=== PATIENT | male | born 1990 | race Caucasian/White ===

== ENCOUNTER 2023-07-30 18:27 | Emergency (ER) | payer OTHER, SELFPAY ==
--- NOTE | 2023-07-30 18:29 | ECG_ITS ---
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
[2023-07-30 18:32] VITALS: BP 150/100; PULSE 100; RESP 18; TEMP 36.8; O2SAT 98; BMI 30.3
[2023-07-30 18:47] VITALS: PULSE 88
--- NOTE | 2023-07-30 18:57 | ED_ITS ---
Documented by User: JOSY Don 07/30/23 19:58 HPI - General Adult General Chief complaint: Psychiatric Symptoms Stated complaint: SI Time Seen by Provider: 07/30/23 18:29 Source: patient Mode of arrival: ambulance Limitations: no limitations History of Present Illness HPI narrative: patient is a 33-year-old male who presents to the emergency department by EMS for possible suicidal ideation. Patient states he has been depressed and called his sister to say goodbye, he did not make any specific suicidal statements and his sister interpreted this as a suicidal gesture. Patient denies any feelings of wanting to harm himself or anyone else. He states he had a suicide attempt over ten years ago, he received counseling and therapy at that time. He continues to feel depressed and medicated with marijuana. He states he drank fire ball at 3 AM this morning but has not had any additional alcohol. He is calm, cooperative the time of initial interview. Related Data Home Medications Medication Instructions Recorded Confirmed esomeprazole magnesium 40 mg 40 mg PO DAILY 07/30/23 07/30/23 capsule,delayed release (Nexium) Allergies Allergy/AdvReac Type Severity Reaction Status Date / Time No Known Drug Allergies Allergy Verified 07/30/23 19:19 Review of Systems ROS Constitutional Denies: fever or chills Ears, nose, mouth, and throat Denies: throat pain Cardiovascular Denies: chest pain Respiratory Denies: shortness of breath Gastrointestinal Denies: nausea or vomiting Integumentary/Breast Denies: rash Neurological Denies: headache PFSH PFSH Social History Smoking status: Current every day smoker Exam Narrative Exam Narrative: Gen.: Awake, alert, in no distress Head: Normocephalic, atraumatic ENT: Moist mucous membranes Respiratory: No respiratory distress, lungs clear bilaterally Cardio: Regular rate and rhythm Extremities: Moves extremities equally, no injuries noted Psych: Normal mood and affect Neuro: No focal neuro deficit Skin: Warm, dry, intact Constitutional Vital Signs, click to edit/add: Last Vital Signs Temp 98.2 F 07/30/23 18:32 Pulse 100 H 07/30/23 18:32 Resp 18 07/30/23 18:32 BP 150/100 H 07/30/23 18:32 Pulse Ox 98 07/30/23 18:32 O2 Del Method Room Air 07/30/23 18:32 Course Vital Signs Vital signs: Vital Signs Temperature 98.2 F 07/30/23 18:32 Pulse Rate 100 H 07/30/23 18:32 Respiratory Rate 18 07/30/23 18:32 Blood Pressure 150/100 H 07/30/23 18:32 Pulse Oximetry 98 07/30/23 18:32 Oxygen Delivery Method Room Air 07/30/23 18:32 Temperature 98.2 F 07/30/23 18:32 Pulse Rate 100 H 07/30/23 18:32 Respiratory Rate 18 07/30/23 18:32 Blood Pressure 150/100 H 07/30/23 18:32 Pulse Oximetry 98 07/30/23 18:32 Oxygen Delivery Method Room Air 07/30/23 18:32 Medical Decision Making MDM Narrative Medical decision making narrative: patient was calm and cooperative in the Emergency Room, his lab studies show he is mildly intoxicated with an ethanol of 163. He is medically cleared for psychiatric evaluation as he is awake, alert and lucid with no slurred speech or altered mental status. Counseling services at [facility] counseling discussed his hesitation over the phone, he was evaluated over the phone by a counselor but does not feel he is at risk for suicidal or homicidal action and he is cleared to be discharged home. His mother will pick him up from the hospital. Return to the Emergency Room if symptoms change or worsen Medical Records Medical records reviewed: Yes I reviewed the patient's medical records Lab Data Lab results reviewed: Yes I reviewed the patient's lab results Labs: Lab Results 07/30/23 07/30/23 Range/Units 18:40 18:54 WBC 6.2 (4.0-11.0) 10^3/uL RBC 4.83 (4.70-6.10) 10^6/uL Hgb 15.0 (14.0-18.0) g/dL Hct 43.9 (42.0-54.0) % MCV 90.9 (80.0-94.0) fL MCH 31.1 (25.9-34.0) pg MCHC 34.2 (29.9-35.2) g/dL RDW 13.6 (11.0-15.0) % Plt Count 317 (150-450) 10^3/uL MPV 8.8 L (9.5-13.5) fL Neut % (Auto) 60.6 (43.0-75.0) % Lymph % (Auto) 26.5 (20.5-60.0) % [place] % (Auto) 10.2 (1.7-12.0) % Eos % (Auto) 1.8 (0.9-7.0) % Baso % (Auto) 0.6 (0.2-2.0) % Neut # (Auto) 3.8 (1.4-6.5) 10^3/uL Lymph # (Auto) 1.6 (1.2-3.8) 10^3/uL [place] # (Auto) 0.6 (0.3-0.8) 10^3/uL Eos # (Auto) 0.1 (0.0-0.7) 10^3/uL Baso # (Auto) 0.0 (0.0-0.1) 10^3/uL Abs Immat Gran (auto) 0.02 (0.00-0.03) 10^3/uL Imm/Tot Granulo (auto) 0.3 (0.0-0.5) % Sodium 139 (136-145) mmol/L Potassium 3.7 (3.5-5.1) mmol/L Chloride 106 (98-107) mmol/L Carbon Dioxide 27.7 (21.0-32.0) mmol/L Anion Gap 9.0 BUN 11.0 (7.0-18.0) mg/dL Creatinine 0.92 (0.70-1.30) mg/dL Est GFR ( Amer) >60 (>=60) Est GFR (Non-Af Amer) >60 (>=60) BUN/Creatinine Ratio 12.0 Glucose 74 (74-106) mg/dL Calcium 8.1 L (8.5-10.1) mg/dL Total Bilirubin 0.2 (0.2-1.0) mg/dL AST 23 (15-37) U/L ALT 46 (16-63) U/L Alkaline Phosphatase 112 (46-116) U/L Total Protein 7.5 (6.4-8.2) g/dL Albumin 4.2 (3.4-5.0) g/dL Globulin 3.3 g/dL Albumin/Globulin Ratio 1.3 Urine Color Yellow (YELLOW) Urine Clarity Clear (CLEAR) Urine pH 5.5 (5.0-9.0) Ur Specific [place] >=1.030 A (1.005-1.025) Urine Protein Trace (NEG/TRACE) mg/dL Urine Glucose (UA) Negative (NEGATIVE) mg/dL Urine Ketones Negative (NEGATIVE) mg/dL Urine Occult Blood Moderate A (NEGATIVE) Urine Nitrite Negative (NEGATIVE) Urine Bilirubin Negative (NEGATIVE) Urine Urobilinogen 0.2 (0.2-1.0) EU/dL Ur Leukocyte Esterase Negative (NEGATIVE) Urine RBC 0-2 (0-2) #/HPF Urine WBC 0-2 A (NONE SEEN) #/HPF Ur Squamous Epith Cells Rare (NONE/RARE) #/LPF Urine Crystals None seen (None Seen) #/HPF Urine Bacteria Large A (NONE SEEN) #/HPF Urine Casts None seen (NONE SEEN) #/LPF Urine Mucus None seen (NONE SEEN) Ur Culture Indicated? Yes Salicylates <2.8 (<=19.9) mg/dL Urine Opiates Screen Negative (NEGATIVE) Ur Buprenorphine Scrn Negative (NEGATIVE) Ur Oxycodone Screen Negative (NEGATIVE) Urine Methadone Screen Negative (NEGATIVE) Ur Propoxyphene Screen Negative (NEGATIVE) Acetaminophen <2.0 L (10.0-30.0) ug/mL Ur Barbiturates Screen Negative (NEGATIVE) U Tricyclic Antidepress Negative (NEGATIVE) Ur Phencyclidine Scrn Negative (NEGATIVE) Ur Amphetamines Screen Negative (NEGATIVE) U Methamphetamines Scrn Negative (NEGATIVE) U Benzodiazepines Scrn Negative (NEGATIVE) Urine Cocaine Screen Negative (NEGATIVE) U Cannabinoids Screen Positive A (NEGATIVE) Ethanol Quant 163 mg/dL Discharge Plan Discharge Chief Complaint: Psychiatric Symptoms Clinical Impression: Depression Patient Disposition: Home, Self-Care Time of Disposition Decision: 19:54 Condition: Good Prescriptions / Home Meds: No Action esomeprazole magnesium [Nexium] 40 mg capsule,delayed release(DR/EC) 40 mg PO DAILY Instructions: Depression (ED) Stand Alone Forms: Portal Instructions Referrals: Physician,Non-Staff, MD [Primary Care Provider] - 1 week Discharge Date/Time: 07/30/23 20:00 Documented by User: Tracee Mark MD 07/30/23 20:13 HPI - General Adult General Chief complaint: Psychiatric Symptoms Stated complaint: SI Time Seen by Provider: 07/30/23 18:29 Related Data Home Medications Medication Instructions Recorded Confirmed esomeprazole magnesium 40 mg 40 mg PO DAILY 07/30/23 07/30/23 capsule,delayed release (Nexium) Allergies Allergy/AdvReac Type Severity Reaction Status Date / Time No Known Drug Allergies Allergy Verified 07/30/23 19:19 PFSH PFSH Social History Smoking status: Current every day smoker Exam Constitutional Vital Signs, click to edit/add: Last Vital Signs Temp 98.2 F 07/30/23 18:32 Pulse 100 H 07/30/23 18:32 Resp 18 07/30/23 18:32 BP 150/100 H 07/30/23 18:32 Pulse Ox 98 07/30/23 18:32 O2 Del Method Room Air 07/30/23 18:32 Course Vital Signs Vital signs: Vital Signs Temperature 98.2 F 07/30/23 18:32 Pulse Rate 100 H 07/30/23 18:32 Respiratory Rate 18 07/30/23 18:32 Blood Pressure 150/100 H 07/30/23 18:32 Pulse Oximetry 98 07/30/23 18:32 Oxygen Delivery Method Room Air 07/30/23 18:32 Temperature 98.2 F 07/30/23 18:32 Pulse Rate 100 H 07/30/23 18:32 Respiratory Rate 18 07/30/23 18:32 Blood Pressure 150/100 H 07/30/23 18:32 Pulse Oximetry 98 07/30/23 18:32 Oxygen Delivery Method Room Air 07/30/23 18:32 Medical Decision Making MDM Narrative Medical decision making narrative: patient was calm and cooperative in the Emergency Room, his lab studies show he is mildly intoxicated with an ethanol of 163. He is medically cleared for psychiatric evaluation as he is awake, alert and lucid with no slurred speech or altered mental status. Counseling services at [facility] counseling discussed his hesitation over the phone, he was evaluated over the phone by a counselor but does not feel he is at risk for suicidal or homicidal action and he is cleared to be discharged home. His mother will pick him up from the hospital. Return to the Emergency Room if symptoms change or worsen Attending physician attestation I have seen and evaluated this patient. I have reviewed the mid-level provider?s documentation medical decision making and treatment plan. I agree with the mid- level provider?s assessment, and plan. Lab Data Labs: Lab Results 07/30/23 07/30/23 Range/Units 18:40 18:54 WBC 6.2 (4.0-11.0) 10^3/uL RBC 4.83 (4.70-6.10) 10^6/uL Hgb 15.0 (14.0-18.0) g/dL Hct 43.9 (42.0-54.0) % MCV 90.9 (80.0-94.0) fL MCH 31.1 (25.9-34.0) pg MCHC 34.2 (29.9-35.2) g/dL RDW 13.6 (11.0-15.0) % Plt Count 317 (150-450) 10^3/uL MPV 8.8 L (9.5-13.5) fL Neut % (Auto) 60.6 (43.0-75.0) % Lymph % (Auto) 26.5 (20.5-60.0) % [place] % (Auto) 10.2 (1.7-12.0) % Eos % (Auto) 1.8 (0.9-7.0) % Baso % (Auto) 0.6 (0.2-2.0) % Neut # (Auto) 3.8 (1.4-6.5) 10^3/uL Lymph # (Auto) 1.6 (1.2-3.8) 10^3/uL [place] # (Auto) 0.6 (0.3-0.8) 10^3/uL Eos # (Auto) 0.1 (0.0-0.7) 10^3/uL Baso # (Auto) 0.0 (0.0-0.1) 10^3/uL Abs Immat Gran (auto) 0.02 (0.00-0.03) 10^3/uL Imm/Tot Granulo (auto) 0.3 (0.0-0.5) % Sodium 139 (136-145) mmol/L Potassium 3.7 (3.5-5.1) mmol/L Chloride 106 (98-107) mmol/L Carbon Dioxide 27.7 (21.0-32.0) mmol/L Anion Gap 9.0 BUN 11.0 (7.0-18.0) mg/dL Creatinine 0.92 (0.70-1.30) mg/dL Est GFR ( Amer) >60 (>=60) Est GFR (Non-Af Amer) >60 (>=60) BUN/Creatinine Ratio 12.0 Glucose 74 (74-106) mg/dL Calcium 8.1 L (8.5-10.1) mg/dL Total Bilirubin 0.2 (0.2-1.0) mg/dL AST 23 (15-37) U/L ALT 46 (16-63) U/L Alkaline Phosphatase 112 (46-116) U/L Total Protein 7.5 (6.4-8.2) g/dL Albumin 4.2 (3.4-5.0) g/dL Globulin 3.3 g/dL Albumin/Globulin Ratio 1.3 Urine Color Yellow (YELLOW) Urine Clarity Clear (CLEAR) Urine pH 5.5 (5.0-9.0) Ur Specific [place] >=1.030 A (1.005-1.025) Urine Protein Trace (NEG/TRACE) mg/dL Urine Glucose (UA) Negative (NEGATIVE) mg/dL Urine Ketones Negative (NEGATIVE) mg/dL Urine Occult Blood Moderate A (NEGATIVE) Urine Nitrite Negative (NEGATIVE) Urine Bilirubin Negative (NEGATIVE) Urine Urobilinogen 0.2 (0.2-1.0) EU/dL Ur Leukocyte Esterase Negative (NEGATIVE) Urine RBC 0-2 (0-2) #/HPF Urine WBC 0-2 A (NONE SEEN) #/HPF Ur Squamous Epith Cells Rare (NONE/RARE) #/LPF Urine Crystals None seen (None Seen) #/HPF Urine Bacteria Large A (NONE SEEN) #/HPF Urine Casts None seen (NONE SEEN) #/LPF Urine Mucus None seen (NONE SEEN) Ur Culture Indicated? Yes Salicylates <2.8 (<=19.9) mg/dL Urine Opiates Screen Negative (NEGATIVE) Ur Buprenorphine Scrn Negative (NEGATIVE) Ur Oxycodone Screen Negative (NEGATIVE) Urine Methadone Screen Negative (NEGATIVE) Ur Propoxyphene Screen Negative (NEGATIVE) Acetaminophen <2.0 L (10.0-30.0) ug/mL Ur Barbiturates Screen Negative (NEGATIVE) U Tricyclic Antidepress Negative (NEGATIVE) Ur Phencyclidine Scrn Negative (NEGATIVE) Ur Amphetamines Screen Negative (NEGATIVE) U Methamphetamines Scrn Negative (NEGATIVE) U Benzodiazepines Scrn Negative (NEGATIVE) Urine Cocaine Screen Negative (NEGATIVE) U Cannabinoids Screen Positive A (NEGATIVE) Ethanol Quant 163 mg/dL Discharge Plan Discharge Chief Complaint: Psychiatric Symptoms Clinical Impression: Depression Patient Disposition: Home, Self-Care Time of Disposition Decision: 19:54 Condition: Good Prescriptions / Home Meds: No Action esomeprazole magnesium [Nexium] 40 mg capsule,delayed release(DR/EC) 40 mg PO DAILY Instructions: Depression (ED) Stand Alone Forms: Portal Instructions Referrals: Physician,Non-Staff, MD [Primary Care Provider] - 1 week Discharge Date/Time: 07/30/23 20:00
[2023-07-30 19:02] LABS: Bilirubin Urine NEGATIVE (NEGATIVE); Blood Urine MODERATE (NEGATIVE); Clarity Urine CLEAR (CLEAR); Color Urine YELLOW (YELLOW); Glucose Urine UA NEGATIVE (NEGATIVE); Ketones Urine NEGATIVE (NEGATIVE); Leukocyte Esterase Urine NEGATIVE (NEGATIVE); Nitrite Urine NEGATIVE (NEGATIVE); Protein Urine TRACE mg/dL (NEG/TRACE); Specific Gravity Urine >=1.030 (1.005-1.025); Urobilinogen Urine 0.2 EU/dL (0.2-1.0); pH Urine 5.5 (5.0-9.0)
[2023-07-30 19:03] LABS: Basophils Percent Auto 0.6 % (0.2-2.0); Eosinophils Absolute Auto 0.1 10^3/uL (0.0-0.7); Eosinophils Percent Auto 1.8 % (0.9-7.0); Hematocrit 43.9 % (42.0-54.0); Immature Granulocytes Abs Auto 0.02 10^3/uL (0.00-0.03); Immature Granulocytes Pct Auto 0.3 % (0.0-0.5); Lymphocytes Absolute Auto 1.6 10^3/uL (1.2-3.8); Lymphocytes Percent Auto 26.5 % (20.5-60.0); Mean Corpuscular HGB Conc 34.2 g/dL (29.9-35.2); Mean Corpuscular Hemoglobin 31.1 pg (25.9-34.0); Mean Corpuscular Volume 90.9 fL (80.0-94.0); Mean Platelet Volume 8.8 fL (9.5-13.5); Monocytes Absolute Auto 0.6 10^3/uL (0.3-0.8); Monocytes Percent Auto 10.2 % (1.7-12.0); Neutrophils Absolute Auto 3.8 10^3/uL (1.4-6.5); Neutrophils Percent Auto 60.6 % (43.0-75.0); Platelet Count 317 10^3/uL (150-450); Red Blood Count 4.83 10^6/uL (4.70-6.10); Red Cell Distribution Width 13.6 % (11.0-15.0); White Blood Count 6.2 10^3/uL (4.0-11.0)
[2023-07-30 19:03] LABS: Urine Microscopic Indicated YES
[2023-07-30 19:10] LABS: Bacteria Urine LARGE #/HPF (NONE SEEN); Cast Seen? NONE SEEN #/LPF (NONE SEEN); Crystals Seen? None Seen #/HPF (None Seen); Mucus Urine NONE SEEN (NONE SEEN); RBC Urine 0-2 #/HPF (0-2); Squamous Epithelial Cell Urine RARE #/LPF (NONE/RARE); Urine Culture Indicated YES; WBC Urine 0-2 #/HPF (NONE SEEN)
[2023-07-30 19:12] LABS: Amphetamine Screen Urine NEGATIVE (NEGATIVE); Barbiturates Screen Urine NEGATIVE (NEGATIVE); Benzodiazepines Screen Urine NEGATIVE (NEGATIVE); Buprenorphine Screen Urine NEGATIVE (NEGATIVE); Cannabinoid Screen Urine POSITIVE (NEGATIVE); Cocaine Screen Urine NEGATIVE (NEGATIVE); Methadone Screen Urine NEGATIVE (NEGATIVE); Methamphetamines Screen Urine NEGATIVE (NEGATIVE); Opiate Screen Urine NEGATIVE (NEGATIVE); Oxycodone Screen Urine NEGATIVE (NEGATIVE); Phencyclidine Screen Urine NEGATIVE (NEGATIVE); Tricyclic Antidepressant Urine NEGATIVE (NEGATIVE)
[2023-07-30 19:21] LABS: Alanine Aminotransferase 46 U/L (16-63); Albumin Globulin Ratio 1.3; Albumin Level 4.2 g/dL (3.4-5.0); Alkaline Phosphatase 112 U/L (46-116); Aspartate Amino Transferase 23 U/L (15-37); Bilirubin Total 0.2 mg/dL (0.2-1.0); Calcium 8.1 mg/dL (8.5-10.1); Carbon Dioxide 27.7 mmol/L (21.0-32.0); Chloride 106 mmol/L (98-107); Estimated GFR (African America >60 (>=60); Estimated GFR (Non-African Ame >60 (>=60); Globulin 3.3 g/dL; Glucose 74 mg/dL (74-106); Potassium 3.7 mmol/L (3.5-5.1); Sodium 139 mmol/L (136-145); Total Protein 7.5 g/dL (6.4-8.2)
[2023-07-30] MEDS: ACETAMINOPHEN 325 MG TABLET 650 MG PO (19:27)
[2023-07-30] MEDS: ONDANSETRON PF 4 MG/2 ML VIAL IV (19:28)
[2023-07-30 19:37] LABS: Ethanol 163 mg/dL; Salicylate <2.8 mg/dL (<=19.9)
[2023-07-30 19:38] LABS: Acetaminophen <2.0 ug/mL (10.0-30.0)
== END 2023-07-30 20:00 | disposition home or self-care (01) ==
PROVIDERS: Physician Assistant; Emergency Provider Emergency Medicine
DX: F32.A Depression, unspecified (principal); R45.851 Suicidal ideations; Z79.899 Other long term (current) drug therapy; F17.210 Nicotine dependence, cigarettes, uncomplicated; F10.129 Alcohol abuse with intoxication, unspecified; Y90.6 Blood alcohol level of 120-199 mg/100 ml
CPT/HCPCS: 36415; 80053; 80179; 80307; 80320; 80329; 81001; 85025; 87086; 93005; 99284

== ENCOUNTER 2024-04-22 03:38 | Emergency (ER) | payer SELFPAY ==
[2024-04-22 03:43] VITALS: BP 154/108; PULSE 90; TEMP 36.8; O2SAT 97; BMI 21.8
[2024-04-22 04:07] LABS: Basophils Absolute Auto 0.1 10^3/uL (0.0-0.1); Basophils Percent Auto 0.3 % (0.2-2.0); Eosinophils Percent Auto 0.1 % (0.9-7.0); Hemoglobin 16.5 g/dL (14.0-18.0); Immature Granulocytes Abs Auto 0.23 10^3/uL (0.00-0.03); Immature Granulocytes Pct Auto 1.5 % (0.0-0.5); Lymphocytes Absolute Auto 1.1 10^3/uL (1.2-3.8); Lymphocytes Percent Auto 6.9 % (20.5-60.0); Mean Corpuscular HGB Conc 34.4 g/dL (29.9-35.2); Mean Corpuscular Hemoglobin 31.3 pg (25.9-34.0); Mean Corpuscular Volume 90.9 fL (80.0-94.0); Mean Platelet Volume 9.3 fL (9.5-13.5); Monocytes Percent Auto 6.6 % (1.7-12.0); Neutrophils Absolute Auto 13.2 10^3/uL (1.4-6.5); Neutrophils Percent Auto 84.6 % (43.0-75.0); Platelet Count 355 10^3/uL (150-450); Red Blood Count 5.28 10^6/uL (4.70-6.10); Red Cell Distribution Width 12.5 % (11.0-15.0); White Blood Count 15.6 10^3/uL (4.0-11.0)
--- NOTE | 2024-04-22 04:09 | CT_ITS ---
[address] [address] Patient Name: PERCY ELIZABETH MRN: [id number] date: 1990 Sex: M Assigned Patient Location: ER Current Patient Location: Accession/Order Number: [id number] Exam Date: 04/22/2024 04:40 Report Date: 04/22/2024 05:23 At the request of: TAM FINCH Procedure: CT abdomen pelvis w con EXAMINATION: CT abdomen pelvis w con HISTORY: abdominal pain , vomiting COMPARISON: No relevant comparison available. TECHNIQUE: Axial, Coronal, and Sagittal images were obtained without and/or with IV contrast as indicated by examination type. Dose reduction techniques were achieved by using automated exposure control and/or adjustment of mA and/or kV according to patient size and/or use of iterative reconstruction technique. FINDINGS: LUNG BASES: No visible pulmonary or pleural disease. LIVER: No enlargement, atrophy, suspicious density, or significant focal lesion. BILIARY: No dilatation or calcification. PANCREAS: No lesion, fluid collection, or abnormal duct dilatation. SPLEEN: No enlargement or focal lesion. ADRENALS: No mass or enlargement. KIDNEYS: A few small round hypodensities favoring cysts. No mass, obstruction, or calcification. BOWEL/MESENTERY: Mild wall thickening of distal stomach and along lesser curvature stomach; no appreciable ulceration. Mild circumferential wall thickening of sigmoid colon without significant surrounding inflammatory changes. No appreciable mass, obstruction, free air, or free fluid. AORTA/VASCULAR: No aneurysm or dissection. RETROPERITONEUM: No mass or adenopathy. LYMPH NODES: No adenopathy. URINARY BLADDER: No visible focal wall thickening, lesion, or calculus. PELVIC ORGANS: No visible mass. Pelvic organs appropriate for patient age. ABDOMINAL WALL: No mass or hernia. 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 No bony lesion or acute fracture. OTHER: Negative. CT/CT abdomen pelvis w con IMPRESSION: 1. Mild wall thickening of distal stomach without appreciable ulcer. Gastritis? 2. Mild circumferential wall thickening of sigmoid colon; lack of distention versus mild colitis. Electronically authenticated by: BRISSA BAKER Date: 04/22/2024 05:23
--- NOTE | 2024-04-22 04:10 | ED.NAVMDI1 ---
HPI - Nausea/Vomiting/Diarrhea General Chief complaint: Nausea/Vomiting/Diarrhea Stated complaint: vomiting Time Seen by Provider: 04/22/24 04:02 Source: patient Mode of arrival: walk-in Limitations: no limitations History of Present Illness HPI Narrative: patient presents with nausea , vomiting and abdominal cramping. No diarrhea. No fever. States no one around him has been ill. Not sure why he is ill. Does not believe it is something he ate MD elicited complaint: Reports nausea and vomiting Related Data Home Medications ?Medication ?Instructions ?Recorded ?Confirmed esomeprazole magnesium 40 mg 40 mg PO DAILY 07/30/23 04/22/24 capsule,delayed release (Nexium) Allergies Allergy/AdvReac Type Severity Reaction Status Date / Time No Known Drug Allergies Allergy Verified 04/22/24 03:48 Review of Systems ROS Status of ROS 10 or more systems reviewed and unremarkable except as noted in history and below [facility] Social History Smoking status: Current every day smoker Exam Constitutional Vital Signs, click to edit/add: Last Vital Signs Temp 98.2 F 04/22/24 03:43 Pulse 66 04/22/24 05:55 Resp 16 04/22/24 05:55 BP 154/108 H 04/22/24 03:43 Pulse Ox 95 04/22/24 05:55 O2 Del Method Room Air 04/22/24 05:55 Common normals: no apparent distress, average body habitus, oriented x3, no limitations, healthy appearing, alert and well nourished [facility] Common normals: normocephalic and head/scalp atraumatic Eye Common normals: PERRL and EOMs intact bilaterally Respiratory Common normals: normal respiratory effort, no retractions, no use of accessory muscles and clear to auscultation bilaterally Cardio Common normals: regular rate, regular rhythm, S1 normal heart sound and S2 normal heart sound GI Common normals: Normal to inspection, nondistended, normoactive bowel sounds present, soft to palpation and non-tender Extremity Common normals: normal to inspection and full ROM Neuro Common normals: oriented x3, CN's II-XII intact bilaterally and moves all extremities Psych Appearance: grossly normal Course Vital Signs Vital signs: Vital Signs Temperature 98.2 F 04/22/24 03:43 Pulse Rate 90 04/22/24 03:43 Respiratory Rate 16 04/22/24 03:43 Blood Pressure 154/108 H 04/22/24 03:43 Pulse Oximetry 97 04/22/24 03:43 Oxygen Delivery Method Room Air 04/22/24 03:43 Temperature 98.2 F 04/22/24 03:43 Pulse Rate 66 04/22/24 05:55 Respiratory Rate 16 04/22/24 05:55 Blood Pressure 154/108 H 04/22/24 03:43 Pulse Oximetry 95 04/22/24 05:55 Oxygen Delivery Method Room Air 04/22/24 05:55 MDM - Nausea/Vomiting/Diarrhea MDM Narrative Medical decision making narrative: patient presents with recurrent vomiting. CT with findings of ? gastritis. Abdomen nontender. Patient feeling better after IV hydration and antiemetics. labs unremarkable except urine drug screen positive for THC. May have cyclical vomiting from marijuana. Improved and discharged home to follow up with his doctor Lab Data Labs: Lab Results 04/22/24 04/22/24 Range/Units 03:55 05:05 WBC 15.6 H (4.0-11.0) 10^3/uL RBC 5.28 (4.70-6.10) 10^6/uL Hgb 16.5 (14.0-18.0) g/dL Hct 48.0 (42.0-54.0) % MCV 90.9 (80.0-94.0) fL MCH 31.3 (25.9-34.0) pg MCHC 34.4 (29.9-35.2) g/dL RDW 12.5 (11.0-15.0) % Plt Count 355 (150-450) 10^3/uL MPV 9.3 L (9.5-13.5) fL Neut % (Auto) 84.6 H (43.0-75.0) % Lymph % (Auto) 6.9 L (20.5-60.0) % [place] % (Auto) 6.6 (1.7-12.0) % Eos % (Auto) 0.1 L (0.9-7.0) % Baso % (Auto) 0.3 (0.2-2.0) % Neut # (Auto) 13.2 H (1.4-6.5) 10^3/uL Lymph # (Auto) 1.1 L (1.2-3.8) 10^3/uL [place] # (Auto) 1.0 H (0.3-0.8) 10^3/uL Eos # (Auto) 0.0 (0.0-0.7) 10^3/uL Baso # (Auto) 0.1 (0.0-0.1) 10^3/uL Abs Immat Gran (auto) 0.23 H (0.00-0.03) 10^3/uL Imm/Tot Granulo (auto) 1.5 H (0.0-0.5) % Sodium 140 (136-145) mmol/L Potassium 3.1 L (3.5-5.1) mmol/L Chloride 94 L (98-107) mmol/L Carbon Dioxide 35.7 H (21.0-32.0) mmol/L Anion Gap 13.4 BUN 22.0 H (7.0-18.0) mg/dL Creatinine 1.16 (0.70-1.30) mg/dL Est GFR ( Amer) >60 (>=60) Est GFR (Non-Af Amer) >60 (>=60) BUN/Creatinine Ratio 19.0 Glucose 138 H (74-106) mg/dL Calcium 10.2 H (8.5-10.1) mg/dL Total Bilirubin 0.7 (0.2-1.0) mg/dL AST 22 (15-37) U/L ALT 52 (16-63) U/L Alkaline Phosphatase 111 (46-116) U/L Total Protein 8.6 H (6.4-8.2) g/dL Albumin 4.9 (3.4-5.0) g/dL Globulin 3.7 g/dL Albumin/Globulin Ratio 1.3 Lipase 29.0 (16.0-77.0) U/L Urine Color Yellow (YELLOW) Urine Clarity Clear (CLEAR) Urine pH >=9.0 A (5.0-9.0) Ur Specific [place] 1.010 (1.005-1.025) Urine Protein 30 A (NEG/TRACE) mg/dL Urine Glucose (UA) Negative (NEGATIVE) mg/dL Urine Ketones Negative (NEGATIVE) mg/dL Urine Occult Blood Negative (NEGATIVE) Urine Nitrite Negative (NEGATIVE) Urine Bilirubin Negative (NEGATIVE) Urine Urobilinogen 0.2 (0.2-1.0) EU/dL Ur Leukocyte Esterase Negative (NEGATIVE) Urine RBC 2-5 A (0-2) #/HPF Urine WBC 2-5 A (NONE SEEN) #/HPF Ur Squamous Epith Cells None seen (NONE/RARE) #/LPF Urine Crystals Seen A (None Seen) #/HPF Amorphous Sediment Moderate Urine Bacteria Large A (NONE SEEN) #/HPF Urine Casts None seen (NONE SEEN) #/LPF Urine Mucus Small A (NONE SEEN) Ur Oval Fat Bodies Seen Ur Culture Indicated? Yes Urine Opiates Screen Negative (NEGATIVE) Ur Buprenorphine Scrn Negative (NEGATIVE) Ur Oxycodone Screen Negative (NEGATIVE) Urine Methadone Screen Negative (NEGATIVE) Ur Barbiturates Screen Negative (NEGATIVE) U Tricyclic Antidepress Negative (NEGATIVE) Ur Phencyclidine Scrn Negative (NEGATIVE) Ur Amphetamines Screen Negative (NEGATIVE) U Methamphetamines Scrn Negative (NEGATIVE) U Benzodiazepines Scrn Negative (NEGATIVE) Urine Cocaine Screen Negative (NEGATIVE) U Cannabinoids Screen Positive A (NEGATIVE) Imaging Data Abdominal x-ray: Radiologist's impression: ITS Impressions Abdomen/Pelvis CT 04/22/24 04:09 IMPRESSION: 1. Mild wall thickening of distal stomach without appreciable ulcer. Gastritis? 2. Mild circumferential wall thickening of sigmoid colon; lack of distention versus mild colitis. Electronically authenticated by: BRISSA BAKER Date: 04/22/2024 05:23 Discharge Plan Discharge Stand Alone Forms: Portal Instructions Chief Complaint: Nausea/Vomiting/Diarrhea Clinical Impression: Gastritis, Nausea and vomiting Patient Disposition: Home, Self-Care Prescriptions / Home Meds: No Action esomeprazole magnesium [Nexium] 40 mg capsule,delayed release(DR/EC) 40 mg PO DAILY Print Language: Kazakh Instructions: Gastritis (ED), Acute Nausea and Vomiting (ED) Referrals: Physician,Non-Staff, MD [Primary Care Provider] - 1 week Discharge Date/Time: 04/22/24 06:38
[2024-04-22] MEDS: ONDANSETRON PF 4 MG/2 ML VIAL IV (04:18)
[2024-04-22] MEDS: 0.9 % SODIUM CHLORIDE 1,000 ML 1000 ML IV (04:19)
[2024-04-22 04:21] LABS: Alanine Aminotransferase 52 U/L (16-63); Albumin Globulin Ratio 1.3; Albumin Level 4.9 g/dL (3.4-5.0); Alkaline Phosphatase 111 U/L (46-116); Anion Gap 13.4; Aspartate Amino Transferase 22 U/L (15-37); Bilirubin Total 0.7 mg/dL (0.2-1.0); Calcium 10.2 mg/dL (8.5-10.1); Carbon Dioxide 35.7 mmol/L (21.0-32.0); Chloride 94 mmol/L (98-107); Estimated GFR (African America >60 (>=60); Estimated GFR (Non-African Ame >60 (>=60); Globulin 3.7 g/dL; Glucose 138 mg/dL (74-106); Potassium 3.1 mmol/L (3.5-5.1); Sodium 140 mmol/L (136-145); Total Protein 8.6 g/dL (6.4-8.2)
[2024-04-22 05:28] LABS: Bilirubin Urine NEGATIVE (NEGATIVE); Blood Urine NEGATIVE (NEGATIVE); Clarity Urine CLEAR (CLEAR); Color Urine YELLOW (YELLOW); Glucose Urine UA NEGATIVE (NEGATIVE); Ketones Urine NEGATIVE (NEGATIVE); Leukocyte Esterase Urine NEGATIVE (NEGATIVE); Nitrite Urine NEGATIVE (NEGATIVE); Protein Urine 30 mg/dL (NEG/TRACE); Urobilinogen Urine 0.2 EU/dL (0.2-1.0); pH Urine >=9.0 (5.0-9.0)
[2024-04-22] MEDS: METOCLOPRAMIDE HCL 10 MG/2 ML VIAL IVP (05:28)
[2024-04-22 05:39] LABS: Amphetamine Screen Urine NEGATIVE (NEGATIVE); Barbiturates Screen Urine NEGATIVE (NEGATIVE); Benzodiazepines Screen Urine NEGATIVE (NEGATIVE); Buprenorphine Screen Urine NEGATIVE (NEGATIVE); Cannabinoid Screen Urine POSITIVE (NEGATIVE); Cocaine Screen Urine NEGATIVE (NEGATIVE); Methadone Screen Urine NEGATIVE (NEGATIVE); Methamphetamines Screen Urine NEGATIVE (NEGATIVE); Opiate Screen Urine NEGATIVE (NEGATIVE); Oxycodone Screen Urine NEGATIVE (NEGATIVE); Phencyclidine Screen Urine NEGATIVE (NEGATIVE); Tricyclic Antidepressant Urine NEGATIVE (NEGATIVE)
[2024-04-22 05:43] LABS: Bacteria Urine LARGE #/HPF (NONE SEEN); Crystals Seen? Seen #/HPF (None Seen); Mucus Urine SMALL (NONE SEEN); Squamous Epithelial Cell Urine NONE SEEN #/LPF (NONE/RARE)
[2024-04-22 05:44] LABS: Amorphous Sediment Urine MODERATE; Cast Seen? NONE SEEN #/LPF (NONE SEEN); Oval Fat Bodies Urine SEEN; Urine Culture Indicated YES
[2024-04-22] MEDS: DIPHENHYDRAMINE HCL 50 MG/ML VIAL IV (05:50)
[2024-04-22 05:55] VITALS: PULSE 66; O2SAT 95
== END 2024-04-22 06:38 | disposition home or self-care (01) ==
PROVIDERS: Emergency Provider Internal Medicine
DX: K29.70 Gastritis, unspecified, without bleeding (principal); R11.2 Nausea with vomiting, unspecified
CPT/HCPCS: 36415; 74177; 80053; 80307; 81001; 83690; 85025; 87086; 96361; 96374; 96375; 99284; Q9967

== ENCOUNTER 2025-02-22 06:28 | Outpatient (OUT) | payer BC, SELFPAY ==
--- OUTSIDE RECORDS SUMMARY | 2025-02-22 06:34 | XMS_ITS | CCD ---
Demographics Address [address] [place] [address] Preferred Language en Marital Status Single Moravian Affiliation Unknown Race White Ethnic Group Not or Lati no Author Organization [facility] Inform ion Partnership [facility] Care Team Providers Care Physician Locums Urgent Care Name Role Phone DR TOPHER BUCK Primary Care Unavailable DR BRISSA BAKER Consulting Unavailable SAUD LUGO Attending Unavailable POLLO Henning, SAUD Admitting Unavailable SAUD LUGO Consulting Unavailable MD Oksana Imdustin Attending Provider [phone] DO Topher Buck Primary Care Provider DO TOPHER BUCK Attending Unavailable TOPHER BUCK Primary Care Unavailable Topher Buck Primary Care Unavailable Maru Gandhi Attending Unavailable Maru Gandhi Admitting Unavailable Medications Current Medications Medication Drug Class(es) Dates Sig (Normalized) Sig (Original) esomeprazole 40 mg delayed release oral capsule (1 source) Proton Pump Inhibitor Start: 09-05-2024 take 1 capsule by mouth once daily Esomeprazole Magnesium (Nexium) 40 mg capsule,delayed release(DR/EC) Active 40 MG PO Daily September 05, 2024 12:00am psyllium 3400 mg powder for oral suspension (2 sources) Start: 09-27-2024 Psyllium Husk (Metamucil) 3.4 gram/5.4 gram powder Active 1 TBSP PO As Directed September 27, 2024 12:00am mix into at least 8 oz of water or juice before administering Start: 09-05-2024 End: 09-27-2024 metamucil Discontinued PO Tw ice a Week September 05, 2024 12:00am September 27, 2024 9:57am Problems Problem Classification Problem Date Documented Da te Episodic/Chronic Abdominal pain (6 sources) Epigastric pain; Translations: [Abdominal pain] Onset: 3 Episodic Esophageal disorders (2 sources) Gastroesophageal reflux disease; Translations: [Gastro-esophageal reflux disease without esophagitis] 09-05-2024 Chronic Gastrointestinal hemorrhage (2 sources) Melena; Translations: [Melena] 09-05-2024 Episodic Hemorrhoids (1 source) Unspecified hemorrhoids; Translations: [UNSPECIFIED HEMORRHOIDS] Onset: 3 Episodic Other gastrointestinal disorders (1 source) Diarrhea; Translations: [Diarrhea, unspecified] 09-05-2024 Episodic Other gastrointestinal disorders (2 sources) Diarrhea, unspecified; Translations: [Diarrhea] Onset: 4 09-05-2024 Episodic Results Test Name Value Interpretation Reference Range Facil ity Lab - Other Lab Resultson Lab - Other Lab Results [id number] 6#1.00[facility] Outside Recordson 09-28-2024 Outside Records [id number] 7#1.00OTGTIFF [facility] Amphetamine Screen Ql (U)Ord ered By: Imdustin Asaad on 09-27-2024 Amphetamines Ql (U) Negative Negative [facility] Barbiturates [Presence] in U rine by Screen methodOrdered By: Imad Asaad on 09-27-2024 Barbiturates Screen Ql (U) Negative Negative [facility] Benzodiazepines Screen Ql (U )Ordered By: Imad Asaad on 09-27-2024 Benzodiazepines Ql (U) Negative Negative [facility] Benzoylecgonine [Presence] i n Urine by Screen methodOrdered By: Imad Asaad on 09-27-2024 Benzoylecgonine Screen Ql (U) Negative Negative [facility] Cannabinoids [Presence] in U rine by Screen methodOrdered By: Imad Asaad on 09-27-2024 Cannabinoids Screen Ql (U) Positive High Negative [facility] Comment on above: These are unconfirme d results and should not be used for legal purposes. Drug Cut-Off Concentration: AMPH 1000 ng/mL STALIN 200 ng/mL CRYS 200 ng/mL COCM 300 ng/mL OP 300 ng/mL PCP 25 ng/mL THC 20 ng/mL Drug Screen,Urineon 09-27-20 Amphetamine Screen,Urine Negative Normal Negative [facility] Comment on above: Performed By: #### U RDS #### [address] Barbiturate Screen,Urine Negative Normal Negative [facility] Comment on above: Performed By: #### U RDS #### [address] Benzodiazepines Screen,Urine Negative Normal Negative [facility] Comment on above: Performed By: #### U RDS #### [address] Cannabinoid Screen,Urine Positive High Negative [facility] Comment on above: Result Comment: Thes e are unconfirmed results and should not be used for legal purposes. Drug Cut-Off Concentration: AMPH 1000 ng/mL STALIN 200 ng/mL CRYS 200 ng/mL COCM 300 ng/mL OP 300 ng/mL PCP 25 ng/mL THC 20 ng/mL PERFORMED BY: [place] [address] PATHOLOGIST BUSINESS PROCESS SPECIALIST LUCILA KERR M.D. Performed By: #### U RDS #### [address] Cocaine Screen,Urine Negative Normal Negative [facility] Comment on above: Performed By: #### U RDS #### [address] Opiate Screen,Urine Negative Normal Negative [facility] Comment on above: Performed By: #### U RDS #### [address] Phencyclidine Screen,Urine Negative Normal Negative [facility] Comment on above: Performed By: #### U RDS #### [address] Opiates [Presence] in Urine by Screen methodOrdered By: Maru Gandhi on 09-27-2024 Opiates Screen Ql (U) Negative Negative [facility] Pathology Request for Lab Co rpon 09-27-2024 Pathology Request for Lab Thania Normal [facility] Comment on above: Order Comment: PATHO LOGY GI SPECIMEN Result Comment: See report. Scanned copy available in EMR. PERFORMED BY: [place] [address] PATHOLOGIST BUSINESS PROCESS SPECIALIST LUCILA KERR M.D. Performed By: #### P ATH TO [facility] #### [address] Phencyclidine Screen Ql (U)O rdered By: Imad Asaad on 09-27-2024 Phencyclidine Ql (U) Negative Negative [facility] Patient Handouton 05-18-2024 Patient Handout [id number] [facility] - Other Lab Result[facility] Lab - Other Lab Results [id number] #1.00OT[facility]IFF [facility] Patient Handouton 05-17-2024 Patient Handout [id number] #1.[facility] Rad - CT Reporton 05-17-2024 Rad - CT Report [id number] [facility] 03-04-2023 Amylase [Catalytic activity/Vol] 72 U/L Normal 25-115 [facility] Comment on above: Performed By: #### L IPA, CMP, JULIO #### [facility] [address] [place] [address] Dr. Ami Villegas CBC AUTO DIFFon 03-04-2023 BASO # 0.1 103/ul Normal 0.0-0.1 [facility] Comment on above: Performed By: #### C BC #### [facility] [address] [place] [address] Dr. Ami Villegas Basophils/100 WBC (Bld) 0.6 % Normal 0.2-2.0 [facility] Comment on above: Performed By: #### C BC #### [facility] [address] [place] [address] Dr. Ami Villegas EO # 0.1 103/ul Normal 0.0-0.7 [facility] Comment on above: Performed By: #### C BC #### [facility] [address] [place] [address] Dr. Ami Villegas Eosinophils/100 WBC (Bld) 0.7 % Critically low 0.9-7.0 [facility] Comment on above: Performed By: #### C BC #### [facility] [address] [place] [address] Dr. Ami Villegas Erythrocyte distribution width (RBC) [Ratio] 13.0 % Normal 11.0-15.0 [facility] Comment on above: Performed By: #### C BC #### [facility] [address] [place] [address] Dr. Ami Villegas Hematocrit (Bld) [Volume fraction] 43.6 % Normal 42.0-54.0 [facility] Comment on above: Performed By: #### C BC #### [facility] [address] [place] [address] Dr. Ami Villegas Hemoglobin (Bld) [Mass/Vol] 15.2 g/dL Normal 14.0-18.0 [facility] Comment on above: Performed By: #### C BC #### [facility] [address] [place] [address] Dr. Ami Villegas IG # 0.03 10e3/ul Normal 0.00-0.03 [facility] Comment on above: Performed By: #### C BC #### [facility] [address] [place] [address] Dr. Ami Villegas IG % 0.4 % Normal 0.0-0.5 [facility] Comment on above: Performed By: #### C BC #### [facility] [address] [place] [address] Dr. Ami Villegas LYMPH # 1.7 103/ul Normal 1.2-3.8 [facility] Comment on above: Performed By: #### C BC #### [facility] [address] [place] [address] Dr. Ami Villegas Lymphocytes/100 WBC (Bld) 20.2 % Critically low 20.5-60.0 [facility] Comment on above: Performed By: #### C BC #### [facility] [address] [place] [address] Dr. Ami Villegas MANUAL DIFF REQ NO [facility] Comment on above: Performed By: #### C BC #### [facility] [address] [place] [address] Dr. Ami Villegas MCH (RBC) [Entitic mass] 31.7 pg Normal 25.9-34.0 [facility] Comment on above: Performed By: #### C BC #### [facility] [address] [place] [address] Dr. Ami Villegas MCHC (RBC) [Mass/Vol] 34.9 g/dL Normal 29.9-35.2 [facility] Comment on above: Performed By: #### C BC #### [facility] [address] [place] [address] Dr. Ami Villegas MCV (RBC) [Entitic vol] 91.0 fL Normal 80.0-94.0 [facility] Comment on above: Performed By: #### C BC #### [facility] [address] [place] [address] Dr. Ami Villegas MONO # 0.6 103/ul Normal 0.3-0.8 [facility] Comment on above: Performed By: #### C BC #### [facility] [address] [place] [address] Dr. Ami Villegas Monocytes/100 WBC (Bld) 6.7 % Normal 1.7-12.0 [facility] Comment on above: Performed By: #### C BC #### [facility] [address] [place] [address] Dr. Ami Villegas NEUT # 5.9 103/ul Normal 1.4-6.5 [facility] Comment on above: Performed By: #### C BC #### [facility] [address] [place] [address] Dr. Ami Villegas Neutrophils/100 WBC (Bld) 71.4 % Normal 43.0-75.0 [facility] Comment on above: Performed By: #### C BC #### [facility] [address] [place] [address] Dr. Ami Villegas Platelet mean volume (Bld) [Entitic vol] 9.2 fL Critically low 9.5-13.5 [facility] Comment on above: Performed By: #### C BC #### [facility] [address] [place] [address] Dr. Ami Villegas PLT 314 103/ul Normal 150-450 [facility] Comment on above: Performed By: #### C BC #### [facility] [address] [place] [address] Dr. Ami Villegas RBC 4.79 106/ul Normal 4.70-6.10 [facility] Comment on above: Performed By: #### C BC #### [facility] [address] [place] [address] Dr. Ami Villegas WBC 8.3 103/ul Normal 4.0-11.0 [facility] Comment on above: Performed By: #### C BC #### [facility] [address] [place] [address] Dr. Ami Villegas LIPASEon 03-04-2023 Lipase [Catalytic activity/Vol] 123.0 U/L Normal 73.0-393.0 [facility] Comment on above: Performed By: #### L IPA, CMP, JULIO #### [facility] [address] [place] [address] Dr. Ami Villegas OCC BLD IMMUNO SCREENon OCCULT BLOOD Negative Normal NEGATIVE [facility] Comment on above: Performed By: #### O BSCRN #### [facility] [address] [place] [address] Dr. Ami Villegas PROF 14(COMP METB)on 023 Albumin [Mass/Vol] 4.3 g/dL Normal 3.4-5.[address] [facility] Comment on above: Performed By: #### L IPA, CMP, JULIO #### [facility] [address] [place] [address] Dr. Ami Villegas Albumin/Globulin [Mass ratio] 1.3 {ratio} Normal [facility] Comment on above: Performed By: #### L IPA, CMP, JULIO #### [facility] [address] [address] [address] Ami Villegas ALP [Catalytic activity/Vol] 106 U/L Normal 46-116 [facility] Comment on above: Performed By: #### L IPA, CMP, JULIO #### [facility] [address] [address] [address] Ami iVllegas ALT [Catalytic activity/Vol] 38 U/L Normal 16-63 [facility] Comment on above: Performed By: #### L IPA, CMP, JULIO #### [facility] [address] [place] [address] Dr. Ami Villegas Anion gap [Moles/Vol] 10.5 mmol/L Normal [facility] Comment on above: Performed By: #### L IPA, CMP, JULIO #### [facility] [address] [address] [address] Ami Villegas AST [Catalytic activity/Vol] 24 U/L Normal 15-37 [facility] Comment on above: Performed By: #### L IPA, CMP, JULIO #### [facility] [address] [address] [address] Ami Villegas Bilirubin [Mass/Vol] 0.2 mg/dL Normal 0.2-1.0 [facility] Comment on above: Performed By: #### L IPA, CMP, JULIO #### [facility] [address] [place] [address] Dr. Ami Villegas Calcium [Mass/Vol] 8.8 mg/dL Normal 8.5-10.[address] [facility] Comment on above: Performed By: #### L IPA, CMP, JULIO #### [facility] [address] [place] [address] Dr. Ami Villegas Chloride [Moles/Vol] 102 mmol/L Normal 98-107 [facility] Comment on above: Performed By: #### L IPA, CMP, JULIO #### [facility] [address] [place], [place] [address] Dr. Ami Villegas CO2 [Moles/Vol] 30.1 mmol/L Normal 21.0-32.0 [facility] Comment on above: Performed By: #### L IPA CMP, JULIO #### [facility] [address] [address] [address] Ami Villegas Creatinine [Mass/Vol] 0.82 mg/dL Normal 0.70-1.30 [facility] Comment on above: Performed By: #### L IPA CMP, JULIO #### [facility] [address] [address] [address] Ami Villegas EGFR-AF MOSOTHO >60 Normal >=60 [facility] Comment on above: Performed By: #### L IPA CMP, JULIO #### [facility] [address] [address] [address] Ami Villegas EGFR-NON AF MOSOTHO >60 Normal >=60 [facility] Comment on above: Performed By: #### L IPA CMP, JULIO #### [facility] [address] [address] [address] Ami Villegas Globulin (S) [Mass/Vol] 3.3 g/dL Normal [facility] Comment on above: Performed By: #### L IPA CMP, JULIO #### [facility] [address] [address] [address] Ami Villegas Glucose [Mass/Vol] 106 mg/dL Normal 74-106 [facility] Comment on above: Performed By: #### L IPA CMP, JULIO #### [facility] [address] [address] [address] Ami Villegas Potassium [Moles/Vol] 3.6 mmol/L Normal 3.5-5.1 [facility] Comment on above: Performed By: #### L IPA CMP, JULIO #### [facility] [address] [address] [address] Ami Villegas Protein [Mass/Vol] 7.6 g/dL Normal 6.4-8.2 [facility] Comment on above: Performed By: #### L IPA CMP, JULIO #### [facility] [address] [address] [address] Ami Villegas Sodium [Moles/Vol] 139 mmol/L Normal 136-[address] [facility] Comment on above: Performed By: #### L JATINDER TILLMAN, JULIO #### [facility] [address] [address] [address] Ami Villegas Urea nitrogen [Mass/Vol] 13.0 mg/dL Normal 7.0-18.0 [facility] Comment on above: Performed By: #### L IPA CMP, JULIO #### [facility] [address] [address] [address] Ami Villegas Urea nitrogen/Creatinine [Mass ratio] 15.9 mg/mg Normal [facility] Comment on above: Performed By: #### L PRIMO CMP, JULIO #### [facility] [address] [address] [address] Ami Villegas XR ABD FLAT UP_PA Dickson 03-04 XR ABD FLAT UP_PA CH EXAMINATION: XR ABD FLAT UP_PA CH HISTORY: NAUSEA WITH VOMITING, UNSPECIFIED , upper abdominal pain COMPARISON: No relevant comparison available. FINDINGS: LUNGS: No infiltrate, pneumothorax, or pleural effusion. MEDIASTINUM: No abnormal widening. BOWEL GAS PATTERN: Non-obstructed. No abnormal dilation, suspicious fluid levels, or significant stool burden. FREE AIR: None. CALCIFICATIONS: None significant. BONES: No fracture or visible bone lesion. OTHER: Negative. IMPRESSION: 1. Normal examination. Electronically authenticated by: BRISSA BAKER Date: 2023-03-04 09:35 Normal [facility] Penitentiary Documentson 02-18-2022 Penitentiary Documents [id number] #1.00CD:127 Normal [facility] Family Medicine Office/Clini c Noteon 02-08-2022 Family Medicine Office/Clinic Note [facility] for: CC: right side lymph node, ear and sore throat Onset: 3rd day in here had bloody nose, issues basically since he has been here. Here since beginning of November. History of ear issues as a kid. Used to have tubes and they did not come out right so he has had some issues since then, typically this time of year. Used to see Dr. Buck in [place], and typically would improve with Cephalexin and steroids. PCN allergy as a kid but used it since then without any problems. Azithromycin he took recently and had some improvement but worsened after it was out of his system. Also feels like a sore on the roof of his mouth just behind the teeth. Initially in the visit he was complaining that when he came in he told them he was an alcoholic but he was not given anything for withdrawals and was upset about this. I redirected him to the above complaints as this is resolved and he came in in November. Reviewing the records from that time, he had a 0.0 alcohol level when he came in, and no signs of withdrawal at that time. Objective Vitals & Measurements T: 36.3 ?C(Oral) HR: 61(Peripheral) BP: 125/80 SpO2: 97% Intake & Output No qualifying data available. Physical Exam General: Well hydrated, no apparent distress Head: Normocephalic atraumatic Eyes: EOMI, sclera clear Ears: Bilateral tympanic membranes pearly barraza with good cone of light Nose: erythematous turbinates with crusted drainage, turbinates are not swollen Mouth: small cut appearance behind the upper teeth Neck: shotty cervical lymph nodes Lungs: Lungs clear to auscultation Cardio: Regular rate and rhythm with no murmur Lab Results No qualifying data available. Assessment/Plan 1. Lymphadenitis (I88.9: Nonspecific lymphadenitis, unspecified) Condition: Evaluated Status: Stable Plan: Treat with cephalexin and prednisone as this treatment has helped in the past. Possibly underlying eustachian tube dysfunction although ears do appear normal today. Will treat with prednisone to see if this helps improve these symptoms. Ordered: Office Visit No Charge Orders: cephalexin, 500 mg = 1 cap(s), Oral, q12hr, # 20 cap(s), Refills(s) 0, Pharmacy: [facility], [place], 167.6, cm, 12/13/21 13:28:00 EST, Height/Length Dosing, 55.2, kg, 12/13/21 13:28:00 EST, Weight Dosing predniSONE, 40 mg = 2 tab(s), Oral, Daily, X 5 day(s), # 10 tab(s), Refills(s) 0, Pharmacy: [facility], 167.6, cm, 12/13/21 13:28:00 EST, Height/Length Dosing, 55.2, kg, 12/13/21 13:28:00 EST, Weight Dosing Problem List/Past Medical History Ongoing Lymphadenitis Smoker Historical Acid reflux Medications Inpatient No active inpatient medications Home azithromycin 250 mg Tab, See Instructions cephalexin 500 mg Cap, 500 mg= 1 cap(s), Oral, q12hr omeprazole 20 mg Cap-DR, 20 mg= 1 cap(s), Oral, Daily predniSONE 20 mg Tab, 40 mg= 2 tab(s), Oral, Daily Normal [facility] Comment on above: Result Comment: Elec tronically Signed By: RAMBO FERRIS, Rodolfo Solorio\.br\Date and Time Signed: 02/08/22 11:20 EDT Penitentiary Documentson 12-15-2021 Penitentiary Documents Penitentiary Nurse Visit 14 day Health Appraisal Date of Appraisal: _12/13/2021 Booked Date: 12/05/2021 Court or Release Date: RELEASE 03/05/2022 Did inmate come from another facility: NO PCP: LILLIANA ANGULO [place] Specialist: NO [facility]acy: [facility] Have you ever had suicide attempts: NO If yes, when was your last attempt and how: _ Are you currently under the care of a practitioner for any reason: NO If yes, please explain: _ Date Receiving Screen Evaluation Form reviewed: 12/06/2021 Date Suicide Prevention Health Form reviewed: 12/06/2021 Has the sick call procedure has been explained: YES Does Inmate verbalize understanding: YES Do you or have you ever had any of the following: Recent Head Injury: NO Persistent Headaches: NO Vertigo/Dizziness/ Fainting: NO Stroke/TIA: NO Seizure Disorder: NO Eye/Vision Problems: NO Ear/Nose/Throat Problems: NO Dental Problems: NO Problems Breathing/ Asthma: HAD ACUTE ASTHMA WHEN YOUNGER Genitourinary Problems: NO Diabetes: NO Gastrointestinal Issues: NO High/Low Blood Pressure: NO Heart Problems: NO Recent Broken Bones or deformities: NO Arthritis/ Joint Mobility Issues or Deformities: NO Back/Neck Problems: NO Skin Problems, Rashes, Open Wounds: NO STDs (recent, past, or present): NO Hepatitis Positive: NO HIV Positive: NO Bleeding/Other Blood Disorder: NO Body Infestation (Lice, Crabs, Scabies, Etc): NO Do you have a history of: Violence towards others: NO Being victimized: NO Being sexually assaulted: NO Sexually assaulting others: NO Is this person obviously a higher risk for victimization or assault: NO How does the patient identify him/herself in terms of gender: MALE SKIN: WARM, DRY, INTACT Skin Color: NORMAL FOR ETHNICITY Turgor: WNL Bruises: NO Wound/Lesions: NO Rash: NO Jaundice: NO Edema: NO Clarify and describe: _ Is Physical Therapy needed: NO CARDIOVASCULAR: Arrhythmia: NO Chest Pain: NO Clarify yes response: _ RESPIRATORY: EVEN, UNLABORED Dyspnea: NO Cough: NO Clarify yes response: _ [Mental Status Exam] TB Skin Test Have you ever had tuberculosis: NO Have you ever had a positive TB skin test: NO PPD given on: 12/13/2021 Location given: [facility] Date vial opened: 12/04/2021 Lot number: [id number] Expiration date: 03/20/2023 PPD Comments: _ Inmate states they have had the following Immunizations: STATES HE WAS VACCINATED A CHILD, NONE AN ADULT Hep A: _ Hep B: _ DTAP: _ HIB: _ IPV: _ MMR: _ Varivax: _ HPV: _ Influenza: _ PneumoPCV: _ PPSV23: _ Inmate tested positive for the following drugs: STATES HE HAS BEEN CLEAN FROM OPIATES FOR 7 YEARS Marijuana (THC): _ Have you ever had seizures or other symptoms of withdrawal after stopping the use of alcohol/drugs? _NO Do you wish to attend AA Meetings? YES Penitentiary Assessment 12/13/21 13:26:00 Penitentiary Assessment Entered On: 12/13/2021 13:28 EST Performed On: 12/13/2021 13:26 EST by Birdie Murillo RN Covid-19, MERS, Ebola Screen *Contact With Person With Highly Contagious Disease Like Ebola/MERS/COVID-19 AND Have One or More of the Symptoms Below : No *Travel to a Country With Wide-Spread Ebola/MERS/COVID-19 in the Past 21 Days AND Have One or More of the Symptoms Below : No Patient Reported Covid-19 Testing : Yes Patient Reported Covid-19 Testing Result : Negative Patient Reported Covid-19 Testing Date Question : Yes Patient Reported Covid-19 Testing Where : [facility] Patient Reported Covid-19 Testing When : 12/09/2021 EST *Verify Droplet, Contact Precautions for Ebola (Reference for CDC) : N/A *Verify Airborne, Droplet Precautions for MERS/COVID-19 : N/A Birdie Murillo RN - 12/13/2021 13:26 EST Summary Chief Complaint : Health appraisal Height in Inches : 66 in Height/Length Measured : 167.6 cm(Converted to: 5 ft 6 in, 65.98 in) Weight Measured : 55.2 kg(Converted to: 121 lb 11 Ounces, 121.695 lb) Body Mass Index Measured : 19.65 kg/m2 Weight in Pounds : 121.44 Systolic Blood Pressure : 133 mmHg Diastolic Blood Pressure : 82 mmHg Blood Pressure Location : Right arm Blood Pressure Position : Sitting O2 Sat Resting/Exertion Alpha : Resting Peripheral Pulse Rate : 65 bpm Respiratory Rate : 14 br/min SpO2 : 98 % Temperature Oral : 36.2 DegC(Converted to: 97.2 DegF) Birdie Murillo RN - 12/13/2021 13:26 EST Objective Data and Cognition Screening Cognition: Oriented To : Person, Place, Time Lvl of Consciousness : Alert Cognition: Speech : Normal Cognition: Behavior : Cooperative Cognition: Hallucinations : None Cognition: Mood and Affect : Calm Birdie Murillo RN - 12/13/2021 13:26 EST Problem List/Past Medical History Ongoing Smoker Historical Acid reflux Procedure/Surgical History Tympanectomy. Medications No active medications Allergies No Known Allergies Social History Alcohol - High Risk, 01/30/2018 (more content not included)... Normal [facility] Vital Signs Date Time Vital Sign Value Performing Clinician Elroy beltran 09-27-2024 11:49-0400 Diastolic blood pressure 94 mm[Hg] DO [employer] Work Phone: [facility] 09-27-2024 11:49-0400 Heart rate 84 /min DO [employer] Work Phone: [facility] 09-27-2024 11:49-0400 Respiratory rate 16 /min DO [employer] Work Phone: [facility] 09-27-2024 11:49-0400 SaO2% (BldA) [Mass fraction] 98 % DO Topher House Work Phone: [facility] 09-27-2024 11:49-0400 Systolic blood pressure 125 mm[Hg] DO [facility] House Work Phone: [facility] 09-27-2024 09:58-0400 Body height 167.64 cm DO Topher House Work Phone: [facility] 09-27-2024 09:58-0400 Body weight 59.87 kg DO Topher House Work Phone: [facility] 09-05-2024 14:02-0400 Body height 167.64 cm DO Topher House Work Phone: [facility] 09-05-2024 14:02-0400 Body mass index (BMI) [Ratio] 22.4 kg/m2 DO Topher Buck Work Phone: [facility] 09-05-2024 14:02-0400 Body weight 63.04 kg DO [facility] House Work Phone: [facility] 09-05-2024 14:02-0400 Diastolic blood pressure 88 mm[Hg] DO Topher Buck Work Phone: [facility] 09-05-2024 14:02-0400 Heart rate 84 /min DO Topher Buck Work Phone: [facility] 09-05-2024 14:02-0400 Systolic blood pressure 135 mm[Hg] DO Topher Buck Work Phone: [facility] Encounters Encounter Date Encounter Type Care Provider Facility Start: 09-27-2024 Non-patient / Non-visit DO Topher Buck Work Phone: [facility] Work Phone: Start: 09-27-2024 End: 09-27-2024 Admission to same day surgery center DO Tophre Buck Work Phone: [facility] Work Phone: Start: 09-27-2024 End: 09-27-2024 ambulatory DO Topher Buck Work Phone: [facility] Work Phone: Start: 09-05-2024 End: 09-05-2024 Patient encounter procedure DO Topher Buck Work Phone: [facility] Work Phone: Start: 05-16-2024 End: 05-16-2024 ambulatory DO TOPHER Albina BUCK Facility:[facility] Start: 03-04-2023 End: 03-04-[address] TOPHER BUCK Facility: Procedures Date Procedure Procedure Detail Performing Clinician Start: 09-27-2024 Esophagogastroduodenoscopy DO Topher Buck Work Phone: Plan of Treatment Date Care Activity Detail Author Start: 09-27-2024 [facility] Patient Education Hemorrhoids (D C) Hiatal Hernia (DC) Know your Meds [facility] Work Phone: [facility] Payers Date Payer Category Payer Self-pay 2023 Private Health Insurance [id number] 1990 Unknown [id number] 1990 Unknown [id number] 1959 Private Health Insurance [id number] Private Health Insurance [facility] [id number] Unknown [id number] Social History Date Type Detail Facility Start: 09-27-2024 [facility] Start: 1990 Sex Assigned At Male F [facility] Goals Date Patient Goal Desired Activity /State Procedure note 09-27-2024 Note Date & Type Note Facility 09-27-2024 Procedure note [facility] Evaluation note 09-05-2024 Note Date & Type Note Facility 09-05-2024 Evaluation note Authored September 05, 2024 2: 24pm 34-year-old man referred to the GI clinic for evaluation of abdominal pain and diarrhea. + Chronic diarrhea associated with abdominal discomfort for years. He denied unintentional weight loss however he was never able to gain weight. +chronic heartburn since he was 18 controlled with Nexium 40 mg daily. -Will arrange for EGD to assess for Turner's. -Will get Labs including CBC with diff, TSH, ESR, CRP, fecal calprotectin HIV ab, Celiac panel and stool infectious workup -Will arrange for colonoscopy [facility] Work Phone: Summary Purpose Family History No Family History Records Found Relationship Condition Age at Onset Recorded Date/T lulu maternal grandmother Malignant neoplasm Unknown paternal grandmother Diabetes mellitus Unknown paternal grandfather Heart disease Unknown Advance Directives No Advanced Directives Records Found Advance Directive Response Recorded Date/ Time Advance Directives No May 18 1:30pm Chief Complaint and Reason for Visit Chief Complaint Refer: Melena, abdom inal pain, diarrhea abd. pain/diarrhea/gerd/melena abd. pain/diarrhea/gerd/melena Reason for Visit Abdominal pain Diarrhea GERD (gastroesophageal reflux disease) Melena Additional Source Comments (unrecognized sect ion and content) No Status Records FoundNo Status Records FoundNo Status Records FoundNo Status Records Found INFORMATION SOURCE (unrecogn ized section and content) DATE CREATED AUTHOR 02/24/2022 [facility] DATE CREATED AUTHOR AUTHOR'S ORGANIZ ATION 03/06/2023 [facility] DATE CREATED AUTHOR AUTHOR'S ORGANIZ ATION 09/30/2024 [facility] DATE CREATED AUTHOR AUTHOR'S ORGANIZ ATION 10/11/2024 [facility] Care Teams (unrecognized sec tion and content) Team Status: Active Member Role Status Dates Topher Buck DO Primary Care Provider Active Team Status: Inactive Member Role Status Dates NON STAFF Primary Care Provider Active Start: September 05, 2024 End: September 05, 2024 Maru Gandhi MD Attending Provider Active Start: September 05, 2024 End: September 05, 2024 Topher Buck DO Referring Provider Active Sta rt: September 05, 2024 End: September 05, 2024 Team Status: Inactive Member Role Status Dates Maru Gandhi MD Attending Provider Active Start: September 27, 2024 End: September 27, 2024 Topher Buck DO Primary Care Provider Active Start: September 27, 2024 End: September 27, 2024 Team Status: Active Member Role Status Dates Maru Gandhi MD Attending Provider, Other Provider Active Start: September 27, 2024 Topher Buck DO Primary Care Provider Active Start: September 27, 2024 FOR RECORDS PERTAINING TO PATIENTS WHO ARE OR HAVE BEEN ENROLLED IN A CHEMICAL DEPENDENCY/SUBSTANCEABUSE PROGRAM, SOME INFORMATION MAY BE OMITTED. This clinical summary was aggregated from multiple sources. Caution should be exercised in using it in the provision of clinical care. This summary normalizes information from multiple sources, and as a consequence, information in this document may materially change the coding, format and clinical context of patient data. In addition, data may be omitted in some cases. CLINICAL DECISIONS SHOULD BE BASED ON THE PRIMARY CLINICAL RECORDS. [facility] [facility]. provides no warranty or guarantee of the accuracy or completeness of information in this document.
[2025-02-22 06:49] LABS: Basophils Absolute Auto 0.1 10^3/uL (0.0-0.1); Basophils Percent Auto 0.6 % (0.2-2.0); Eosinophils Absolute Auto 0.1 10^3/uL (0.0-0.7); Hematocrit 44.6 % (42.0-54.0); Hemoglobin 15.4 g/dL (14.0-18.0); Immature Granulocytes Abs Auto 0.03 10^3/uL (0.00-0.03); Immature Granulocytes Pct Auto 0.3 % (0.0-0.5); Lymphocytes Percent Auto 22.6 % (20.5-60.0); Mean Corpuscular HGB Conc 34.5 g/dL (29.9-35.2); Mean Corpuscular Hemoglobin 31.5 pg (25.9-34.0); Mean Corpuscular Volume 91.2 fL (80.0-94.0); Monocytes Absolute Auto 0.8 10^3/uL (0.3-0.8); Monocytes Percent Auto 8.8 % (1.7-12.0); Neutrophils Absolute Auto 5.9 10^3/uL (1.4-6.5); Neutrophils Percent Auto 66.7 % (43.0-75.0); Platelet Count 335 10^3/uL (150-450); Red Blood Count 4.89 10^6/uL (4.70-6.10); White Blood Count 8.8 10^3/uL (4.0-11.0)
[2025-02-22 07:00] LABS: INR 0.96; Prothrombin Time 10.2 sec (9.0-11.6)
== END 2025-02-22 06:29 | disposition home or self-care (01) ==
LOC: LAB 06:31
PROVIDERS: PCP Family Medicine; Visit Provider Family Medicine
DX: K92.1 Melena (principal); R10.9 Unspecified abdominal pain; R19.7 Diarrhea, unspecified; K21.9 Gastro-esophageal reflux disease without esophagitis; R23.3 Spontaneous ecchymoses
CPT/HCPCS: 36415; 85025; 85610

== ENCOUNTER 2025-11-05 10:20 | Emergency (ER) | payer BC, SELFPAY ==
[2025-11-05 10:28] VITALS: BP 151/89; PULSE 83; TEMP 37.1; O2SAT 99; BMI 25.0
--- OUTSIDE RECORDS SUMMARY | 2025-11-05 10:50 | XMS_ITS | CCD ---
Demographics Address [address] [place] [id number] Preferred Language en Marital Status Single Denominational Affiliation Unknown Race White Ethnic Group Not or Lati no Author Organization [facility] Care Team Providers Care Skiver Sock Linings Name Role Phone HOUSE, DR OBANDO Primary Care Unavailable OLIVIA, DR BRISSA Villela Consulting Unavailable POLLO ., SAUD Attending Unavailable POLLO ., SAUD Admitting Unavailable POLLO ., SAUD Consulting Unavailable MD Maru Gandhi Attending Provider House, DO Obando Primary Care Provider Eyad, Topher Primary Care Unavailable Asaad, Maru Attending Unavailable Asaad, Maru Admitting Unavailable HOUSE, TOPHER Montemayor Primary Care Unavailable HOUSE, DO TOPHER Montemayor Admitting Unavailable HOUSE, DO TOPHER Montemayor Attending Unavailable HOUSE, TOPHER Montemayor Primary Care Unavailable HOUSE, DO TOPHER Montemayor Attending Unavailable HOUSE, DO TOPHER Montemayor Attending Unavailable HOUSE, TOPHER Montemayor Primary Care Unavailable BEATRICE SAUCEDO Attending Unavailable Medications Current Medications MedicationDrug Class(es)DatesSig (Normalized)Sig (Original)esomeprazole 40 mg delayed release oral capsule (1 source)Proton Pump InhibitorStart: 04-45-4083kghd 1 capsule by mouth once dailyEsomeprazole Magnesium (Nexium) 40 mg capsule,delayed release(DR/EC) Active 40 MG PO Daily September 05, 2024 12:00ampsyllium 3400 mg powder for oral suspension (2 sources)Start: 50-42-2162Mdcmqadk Husk (Metamucil) 3.4 gram/5.4 gram powder Active 1 TBSP PO As Directed September 27, 2024 12:00am mix into at least 8 oz of water or juice before administeringStart: 09-05-2024 End: 44-99-1961rnevgmnle Discontinued PO Twice a Week September 05, 2024 12:00am September 27, 2024 9:57am Problems Problem ClassificationProblemDateDocumented DateEpisodic/ChronicAbdominal pain (6 sources)Epigastric pain; Translations: [Abdominal pain]Onset: 03-04-2023 EpisodicEsophageal disorders (2 sources)Gastroesophageal reflux disease; Translations: [Gastro-esophageal reflux disease without esophagitis]54-31-8320EfgggdxOsbrzqxgtsntxmsa hemorrhage (2 sources)Melena; Translations: [Melena]50-81-4201TvseavfsIfwixditkvw (1 source)Unspecified hemorrhoids; Translations: [UNSPECIFIED HEMORRHOIDS]Onset: 32-78-4887WmclxwneSnnjl gastrointestinal disorders (1 source)Diarrhea; Translations: [Diarrhea, unspecified]36-66-7927WgqrdgynFzgas gastrointestinal disorders (2 sources)Diarrhea, unspecified; Translations: [Diarrhea]Onset: 09-27-2024 06-25-2111TiqpczmoTynjbcwlfrwx (2 sources)Retirement ClearanceOnset: 09-05-2025 Results Test NameValueInterpretationReference RangeFacilityReminder Messageson 74-34-9523Hckhbieu Messages From: TOPHER BUCK DO To: [facility] Clinical Pool ([facility]); Sent: 03/07/2025 09:37:59 EDT ! Show up: 03/07/2025 09:37:59 EDT Subject: Results Follow Up Actions: Call the patient with result(s) Due Date/Time: 03/08/2025 09:37:00 EDT Reminder Comments: looks good. no pathology Results: Date Result Type Result Name 03/07/2025 8:[address] Abdomen/Pelvis w + w/o Contrast attempted to lvm, no vm From: Ariana Buckley ([facility] Clinical Pool ([facility])) To: TOPHER BUCK DO; Sent: 03/12/2025 12:11:47 EDT Show up: 03/12/2025 12:11:00 EDT Subject: RE: Results Follow Up Patient's girlfriend, Annie ([phone]) notified of normal results, They would like to know what the next steps would be. Please advise, thank you. From: TOPHER BUCK DO To: [facility] Clinical Pool ([facility]); Sent: 03/12/2025 14:43:37 EDT Show up: 03/12/2025 14:42:00 EDT Subject: RE: Results Follow Up I dont know why he keeps getting bruising. suggest referral to hematology. I cant find anything bad Patient notified, he was hesitant to place order to specialist as money was issue, sis not want further testing. Explained that we would send all recent testing along with referral. Patient stated hewould discuss with s/o and call office.[facility] HospitalCoding Summaryon 36-22-8992Mscujm SummaryHTMLBase 64 CiwldwtsSSg2jSu+PGhlYWQ+LV2JEPFqZ82dcAZreG8lE1WLJOlGPxveONQLYMdYPtPfriYbTL7ugFGh ZXJu [file] bGF (more content not included)...[facility] HospitalConsent Formson 71-34-0602Mhypznf [id number]#1.00Cherrington HospitalCT Abdomen/Pelvis w + w/o Contraston 40-29-5163RS Abdomen/Pelvis w + w/o ContrastEXAMINATION: CT Abdomen/Pelvis w + w/o Contrast HISTORY: Unspecified abdominal pain:Constipation, unspecified:Spontaneous ecchymoses COMPARISON: No relevant comparison available. TECHNIQUE: Axial, Coronal, and Sagittal images were created without and with non-ionic intravenous contrast material. Dose reduction techniques were achieved by using automated exposure control and/or adjustment of mA and/or kV according to patient size and/or use of iterative reconstruction technique. FINDINGS: LUNG BASES: 2 mm nodule right middle lobe axial image #3, nonspecific LIVER: No enlargement, atrophy, abnormal density, or significant focal lesion. BILIARY: No dilatation or calcification. PANCREAS: No lesion, fluid collection, ductal dilatation, or atrophy. SPLEEN: No enlargement or focal lesion. ADRENALS: No mass or enlargement. KIDNEYS: Bilateral cortical hypodensities likely simple cysts. No obstructive uropathy BOWEL/MESENTERY: No visible mass, obstruction, or bowel wall thickening. Normal amount of stool AORTA/VASCULAR: No aneurysm or dissection. RETROPERITONEUM: No mass or adenopathy. LYMPH NODES: No adenopathy. URINARY BLADDER: No visible focal wall thickening, lesion, or calculus. PELVIC ORGANS: No visible mass. Pelvic organs appropriate for patient age. ABDOMINAL WALL: No mass or hernia. BONES: No bony lesion or fracture. 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 IMPRESSION: No acute intraperitoneal abnormality Final Dictated by: Will Acosta MD Dictated DT/TM: 03/07/25 8:44 Signed (Electronic Signature): Will Acosta MD 03/07/25 8:54 am Technologist: [facility] - Other Lab Resultson 02-22-2025 Lab - Other Lab [id number]#3.00OTGTKettering Health [facility] - Other Lab Resultson 25-99-0467Yxj - Other Lab [id number]#1.00OTElyria Memorial HospitalOutside Recordson 38-47-0007Bzokkbx Records [id number]#1.00OTElyria [facility] Hospital Amphetamine Screen Ql (U)Ordered By: Imad Asaad on 36-96-8281Dziwsttfboqk Ql (U) NegativeNegativeUniversity Hospitals Ahuja Medical CenterBarbiturates [Presence] in Urine by Screen methodOrdered By: Imad Asaad on 83-86-7976Chbesftvgaug Screen Ql (U)NegativeNegativeUniversity Hospitals Ahuja Medical CenterBenzodiazepines Screen Ql (U)Ordered By: Imad Asaad on 02-76-5863Yzghwhzvkakonzl Ql (U)NegativeNegative [facility] Hospitals Ahuja Medical CenterBenzoylecgonine [Presence] in Urine by Screen methodOrdered By: Imad Asaad on 25-95-9507Rntcjoncqyepxsp Screen Ql (U)Negative NegativeUniversity Hospitals Ahuja Medical CenterCannabinoids [Presence] in Urine by Screen methodOrdered By: Maru Gandhi on 54-34-5614Rhybkdfkillo Screen Ql (U) PositiveHighNegativeUniversity Hospitals Ahuja Medical CenterComment on above:These are unconfirmed results and should not be used for legal purposes. Drug Cut-Off Concentration: AMPH 1000 ng/mL STALIN 200 ng/mL CRYS 200 ng/mL COCM 300 ng/mL OP 300 ng/mL PCP 25 ng/mL THC 20 ng/mLDrug Screen,Urineon 11-84-1834Otpfhszbkmm Screen,UrineNegativeNormalNegativeLee Memorial Hospital Physician GroupComment on above: Performed By: #### URDS #### [place] [address] USABarbiturate Screen,UrineNegativeNormalNegativeLee Memorial Hospital Physician [facility] Care HospitalComment on above:Performed By: #### URDS #### [place] [address] USABenzodiazepines Screen,UrineNegativeNormalNegativeLee Memorial Hospital Physician [facility] Care HospitalComment on above:Performed By: #### URDS #### [place] [address] USACannabinoid Screen,UrinePositiveHighNegativeCranston General Hospital GroupComment on above:Result Comment: These are unconfirmed results and should not be used for legal purposes. Drug Cut-Off Concentration: AMPH 1000 ng/mL STALIN 200 ng/mL CRYS 200 ng/mL COCM 300 ng/mL OP 300 ng/mL PCP 25 ng/mL THC 20 ng/mL PERFORMED BY: [place] [address] PATHOLOGIST [employer] LUCILA KERR M.D.Performed By: #### URDS #### [place] [address] USACocaine Screen,UrineNegativeNormalNegativeLee Memorial Hospital Physician [facility] Care HospitalComment on above:Performed By: #### URDS #### [place] [address] USAOpiate Screen,UrineNegativeNormalNegativeThe [facility] Physician GroupComment on above:Performed By: #### URDS #### [facility] [address] [place] [address] USAPhencyclidine Screen,UrineNegativeNormalNegativeThe [facility] Physician [facility] HospitalComment on above:Performed By: #### URDS #### [facility] [address] [place] [id number] USAOpiates [Presence] in Urine by Screen methodOrdered By: Maru Gandhi on 82-76-3798Zhsbtot Screen Ql (U)NegativeNegBarney Children's Medical CenterPathology Request for Lab Corpon 17-68-0701Dsccsnvek Request for Lab CorpNormalThSt. Luke's [facility] Physician [facility] Care HospitalComment on above:Order Comment: PATHOLOGY GI SPECIMENResult Comment: See report. Scanned copy available in EMR. PERFORMED BY: [place] [address] PATHOLOGIST [employer] LUCILA KERR M.D.Performed By: #### PATH TO [facility] #### [facility] [address] [place] [address] USAPhencyclidine Screen Ql (U)Ordered By: Maru Gandhi on 95-89-9148Yvdzskwcinjdj Ql (U)NegativeNegBarney Children's Medical Center Patient Handouton 14-70-8564Vodvgaz Handout [id number]#1.00OTElyria Memorial HospitalLab - Other Lab Resultson 79-56-9511Zmf - Other Lab Results [id number]#1.00OTElyria [facility] Hospital Patient Handouton 56-97-0502Kpvnwzo Handout [id number]#1.00OTElyria Memorial HospitalRad - CT Reporton 33-42-2783Nsp - CT Report [id number]#1.00OTE[facility] Hospital AMYLASEon 96-17-9809Dnoprzy [Catalytic activity/Vol]72 U/VMswymc23-173Dwv [facility] Health SystemComment on above:Performed By: #### LEO, CMP, JULIO #### [facility] [address] [address] [address] Ami Shah AUTO DIFFon 76-12-7039OHNT #0.1 103/ulNormal0.0-0.1The Memorial Health SystemComment on above:Performed By: #### CBC #### [facility] [address] [address] [address] Ami VillegasBasophils/100 WBC (Bld)0.6 %Normal0.2-2.0The [facility] Comment on above:Performed By: #### CBC #### [facility] [address] [address] [address] Ami Barnes #0.1 103/ulNormal0.0-0.7The [facility] on above: Performed By: #### CBC #### [facility] [address] [address] [address] Ami Duarteosinophils/100 WBC (Bld)0.7 %Critically low0.9-7.0The [facility] on above:Performed By: #### CBC #### [facility] [address] [address] [address] Ami Duarterythrocyte distribution width (RBC) [Ratio]13.0 %Qzhnvi76.0-15.0 The [facility] Regional Medical Centerment on above:Performed By: #### CBC #### [facility] [address] [address] [address] Aim VillegasHematocrit (Bld) [Volume fraction]43.6 %Xccgkt31.0-54.0The [facility] on above:Performed By: #### CBC #### [facility] [address] [address] [address] Ami VillegasHemoglobin (Bld) [Mass/Vol]15.2 g/cYIyaokx31.0-18.0The [facility] on above:Performed By: #### CBC #### [facility] [address] [address] [address] Ami Gonzalez #0.03 10e3/ulNormal0.00-0.03The [facility] SystemComchelsea hospital on above:Performed By: #### CBC #### [facility] [address] [place] [address] Dr. Ami Gonzalez %0.4 %Normal0.0-0.5The [facility] SystemComchelsea hospital on above: Performed By: #### CBC #### [facility] [address] [place] [address] Dr. Ami Vasquez #1.7 103/ulNormal1.2-3.8The [facility] on above:Performed By: #### CBC #### [facility] [address] [place] [address] Dr. Ami Marquishocytes/100 WBC (Bld)20.2 %Critically low20.5-60.0The [facility] on above:Performed By: #### CBC #### [facility] [address] [place] [address] Dr. Ami ReyesUAL DIFF REQNONormalThe [facility] on above: Performed By: #### CBC #### [facility] [address] [place] [address] Dr. Ami Pelayo (RBC) [Entitic mass]31.7 rwIlhtjh59.9-34.0The [facility] on above:Performed By: #### CBC #### [facility] [address] [place] [address] Dr. Ami Pelayo (RBC) [Mass/Vol]34.9 g/vPOkguyf03.9-35.2The [facility] on above:Performed By: #### CBC #### [facility] [address] [place] [address] Dr. Ami Pelayo (RBC) [Entitic vol]91.0 uGQdeoev21.0-94.0The [facility] HospitalComment on above:Performed By: #### CBC #### [facility] [address] [address] [address] Ami Liu #0.6 103/ulNormal0.3-0.8The [facility] Health SystemComment on above:Performed By: #### CBC #### [facility] [address] [address] [address] Ami Murphyocytes/100 WBC (Bld)6.7 %Normal1.7-12.0The [facility] Comment on above:Performed By: #### CBC #### [facility] [address] [place] [address] Dr. Ami Conner #5.9 103/ulNormal1.4-6.5The [facility] Health SystemComment on above:Performed By: #### CBC #### [facility] [address] [place] [address] Dr. Ami Persaudutrophils/100 WBC (Bld)71.4 %Elpttr72.0-75.0The [facility] Health SystemComment on above:Performed By: #### CBC #### [facility] [address] [place] [address] Dr. Ami Díaz mean volume (Bld) [Entitic vol]9.2 fLCritically low 9.5-13.5The [facility] Health SystemComment on above:Performed By: #### CBC #### [facility] [address] [place] [address] Dr. Ami VillegasPLT314 103/cwOuzyvf989-651Mfj [facility] Health SystemComment on above: Performed By: #### CBC #### [facility] [address] [place] [address] Dr. Ami VillegasRBC4.79 106/ulNormal4.70-6.10The [facility] Health SystemComment on above:Performed By: #### CBC #### [facility] [address] [place] [address] Dr. Ami VillegasWBC8.3 103/ulNormal4.0-11.0The [facility] Health SystemComment on above: Performed By: #### CBC #### [facility] [address] [place] [address] Dr. Ami VillegasLIPASEon 19-26-6855Rdihsj [Catalytic activity/Vol]123.0 U/LNormal 73.0-393.0The [facility] Centerment on above:Performed By: #### LIPA, CMP, JULIO #### [facility] [address] [place] [address] Dr. Ami VillegasOCC BLD IMMUNO SCREENon 36-86-0943EOQSVX BLOODNegativeNormal NEGATIVEThe [facility] Medical Centerment on above:Performed By: #### OBSCRN #### [facility] [address] [place] [address] Dr. Ami Arzate 14(COMP METB)on 46-78-4109Qwmfxtz [Mass/Vol]4.3 g/dLNormal 3.4-5.0The [facility] Health SystemComment on above:Performed By: #### LIPA, CMP, JULIO #### [facility] [address] [place] [address] Dr. Ami VillegasAlbumin/Globulin [Mass ratio]1.3 {ratio}NormalThe [facility] Centerment on above:Performed By: #### LIPA, CMP, JULIO #### [facility] [address] [place] [address] Dr. Ami JoeP [Catalytic activity/Vol]106 U/CDuftby26-660Ljm [facility] Centerment on above:Performed By: #### LIPA, CMP, JULIO #### [facility] [address] [place] [address] Dr. Ami Feng [Catalytic activity/Vol]38 U/NIdhaii74-34Uxm [facility] Centerment on above:Performed By: #### LIPA, CMP, JULIO #### [facility] [address] [place] [address] Dr. Ami Morris gap [Moles/Vol]10.5 mmol/LNormalThe [facility] Comment on above:Performed By: #### LIPA, CMP, JULIO #### [facility] [address] [address] [address] Ami VillegasAST [Catalytic activity/Vol]24 U/QRudrvo49-88Yef [facility] SystemComment on above:Performed By: #### LIPA, CMP, JULIO #### [facility] [address] [address] [address] Ami VillegasBilirubin [Mass/Vol]0.2 mg/dLNormal0.2-1.0The [facility] Comment on above:Performed By: #### LIPA, CMP, JULIO #### [facility] [address] [address] [address] Ami VillegasCalcium [Mass/Vol]8.8 mg/dLNormal8.5-10.1The [facility] Comment on above:Performed By: #### LIPA, CMP, JULIO #### [facility] [address] [address] [address] Ami VillegasChloride [Moles/Vol]102 mmol/IDyxmqf27-231Ktl [facility] Comment on above:Performed By: #### LIPA, CMP, JULIO #### [facility] [address] [address] [address] Ami VillegasCO2 [Moles/Vol]30.1 mmol/IAhwckn12.0-32.0The [facility] Comment on above:Performed By: #### LIPA, CMP, JULIO #### [facility] [address] [address] [address] Ami VillegasCreatinine [Mass/Vol]0.82 mg/dLNormal0.70-1.30The [facility] SystemComment on above:Performed By: #### LIPA, CMP, JULIO #### [facility] [address] [place] [address] Dr. Ami DuarteGFR-AF URUGUAYAN>60Normal>=60The [facility] SystemComment on above:Performed By: #### LIPA, CMP, JULIO #### [facility] [address] [address] [address] Ami DuarteGFR-NON AF URUGUAYAN>60Normal>=60The [facility] SystemComment on above:Performed By: #### LIPA, CMP, JULIO #### [facility] [address] [address] [address] Ami VillegasGlobulin (S) [Mass/Vol]3.3 g/dLNormPeoples HospitalComment on above:Performed By: #### LIPA, CMP, JULIO #### [facility] [address] [place] [address] Dr. Ami VillegasGlucose [Mass/Vol]106 mg/bVZhfdcv90-887Ejq [facility] Comment on above:Performed By: #### LIPA, CMP, JULIO #### [facility] [address] [place] [address] Dr. Ami VillegasPotassium [Moles/Vol]3.6 mmol/LNormal3.5-5.1The [facility] Comment on above:Performed By: #### LIPA, CMP, JULIO #### [facility] [address] [place] [address] Dr. Ami VillegasProtein [Mass/Vol]7.6 g/dLNormal6.4-8.2The [facility] Comment on above:Performed By: #### LIPA, CMP, JULIO #### [facility] [address] [place] [address] Dr. Ami VillegasSodium [Moles/Vol]139 mmol/TRatuqt684-805TfqThe [facility] Comment on above:Performed By: #### LIPA, CMP, JULIO #### [facility] [address] [place] [address] Dr. Ami VillegasUrea nitrogen [Mass/Vol]13.0 mg/dLNormal7.0-18.0The [facility] SystemComment on above:Performed By: #### LIPA, CMP, JULIO #### [facility] [address] [place] [address] Dr. Ami Red nitrogen/Creatinine [Mass ratio]15.9 mg/mgNoFairfield Medical CenterComment on above:Performed By: #### LIPA, CMP, JULIO #### [facility] [address] [address] [address] Ami VillegasXR ABD FLAT UP_PA Dickson 47-31-9845QY ABD FLAT UP_PA CHEXAMINATION: XR ABD FLAT UP_PA CH HISTORY: NAUSEA [...] Electronically authenticated by: BRISSA BAKER Date: 2023-03-04 09:35[facility] HospitalJ[facility] Documentson 29-90-4852Ydsl Documents [id number]#1.00CD:127[facility] Medicine Office/Clinic Noteon 68-67-5655Drkvqm Medicine Office/Clinic NoteSubjective Inmate at the [facility] for: CC: right side lymph node, [...] time of year. Used to see Dr. uBck in [place], and typically would improve with Cephalexin and steroids. PCN allergy as a kid but used it since thenwithout any problems. Azithromycin he took recently and had some improvement but worsened after it was out of his system. Also feels like a sore on the roof of his mouth just behind the teeth. Initially in the visit he was complaining that when he came in he told them he was an alcoholic buthe was not given anything for withdrawals and [...] q12hr, # 20 cap(s), Refills(s) 0, Pharmacy: [facility], 167.6, cm, 12/13/21 13:28:00 EST, Height/Length Dosing, 55.2, kg, 12/13/21 13:28:00 EST, Weight Dosing predniSONE, 40 mg = 2 tab(s), Oral, Daily, X 5 day(s), # 10 tab(s), Refills(s) 0, Pharmacy: [facility], 167.6, cm, 12/13/21 13:28:00 EST, Height/Length Dosing, [...] mg Tab, 40 mg= 2 tab(s), Oral, DailyNormJoint Township District Memorial HospitalComment on above:Result Comment: Electronically Signed By: RAMBO FERRIS, Rodolfo Solorio\.br\Date and Time Signed: 02/08/22 11:20 EDTJail Documentson 58-55-0791Wrmk DocumentsJail Nurse Visit 14 day Health Appraisal Date of Appraisal: _12/13/2021 Booked Date: 12/05/2021 Court or Release Date: RELEASE 03/05/2022 Did inmate come from another facility: NO PCP: LILLIANA ANGULO ALABAMA Specialist: NO Pharmacy: [facility] Have you ever had suicide attempts: [...] forearm Date vial opened: 12/04/2021 Lot number: [id number] Expiration date: 03/20/2023 PPD Comments: _ Inmate [...] of withdrawal after stopping the use of alcohol/drugs?_NO Do you wish to attend AA Meetings? YES Retirement Assessment 12/13/21 13:26:00 Retirement Assessment Entered On: 12/13/2021 13:28 EST Performed [...] Yes Patient Reported Covid-19 Testing Where : [facility] Patient Reported Covid-19 Testing When : 12/09/2021 [...] - High Risk, 01/30/2018 (more content not included)...[facility] Vital Signs Date TimeVital SignValuePerforming CgpobsymdBbljayyd60-67-2268 11:49-0400 Diastolic blood bawdrnvy78 mm[Hg]DO [facility] Work Phone: [phone]10-30-2024 11:49-0400 Heart rate84 /[facility] Work Phone: [phone] [place], [place] [address]10-30-2024 11:49-0400 Respiratory rate16 /[facility] Work Phone: [phone]10-30-2024 11:49-0400 SaO2% (BldA) [Mass fraction]98 %DO [facility] Work Phone: [phone]10-30-2024 11:49-0400 Systolic blood mikuqdxz246 mm[Hg]DO [facility] Work Phone: [phone] [place], [place] [address]10-30-2024 09:58-0400 Body kkgocj552.64 cmDO [facility] Work Phone: [phone]10-30-2024 09:58-0400 Body pvfhqo23.87 kgDO [facility] Work Phone: [phone]10-08-2024 14:02-0400 Body .64 cmDO Topher Buck Work Phone: [phone] [place], [place] [address]10-08-2024 14:02-0400 Body mass index (BMI) [Ratio]22.4 kg/m2DO Topher Buck Work Phone: [phone]-[facility]10-08-2024 14:02-0400 Body .04 kgDO Topher Buck Work Phone: [phone]10-08-2024 14:02-0400 Diastolic blood ctzgaffk06 mm[Hg]DO Topher Buck Work Phone: [phone]10-08-2024 14:02-0400 Heart rate84 /minDO Topher Buck Work Phone: [phone]10-08-2024 14:02-0400 Systolic blood elmimryn379 mm[Hg]DO Topher Buck Work Phone: [phone] [place] [address] Encounters Encounter DateEncounter TypeCare ProviderFacilityStart: 09-05-2025 End: 51-52-3652Upsqqlxfn department patient visitELIJA [facility] HospitalStart: 55-52-0655Xbvejcxbi for other general examinationELIPAM [facility] Hospitaltart: 03-05-2025 End: 17-10-2247avgdntmmqmOGANENX P HOUSEFacility:[facility] HospitalStart: 28-03-7091vfaszuuykzSYYSGSC P HOUSEFacility:[facility] ClinicStart: 69-50-3456Uqw- patient / Non-visitDO Topher Buck Work Phone: [phone]-[facility] Work Phone: Start: 09-27-2024 End: 28-01-8229Zjhbuamvi to same day surgery centerDO Topher Buck Work Phone: [phone] [place] [address]-[facility] Work Phone: Start: 09-27-2024 End: 43-38-2427eajbwqnwkrXY Topher Buck Work Phone: [phone] Work Phone: Start: 09-05-2024 End: 34-33-2558Loxduot encounter procedureDO Topher Buck Work Phone: [facility] Gastroenterology Work Phone: Start: 05-16-2024 End: 07-03-3731iymxtfljgjSV TOPHER Montemayor HOUSEFacility:[facility] ClinicStart: 03-04-2023 End: 79-09-1515jfwwqndpnxZW TOPHER [place] CITYFacility:H1 Procedures DateProcedureProcedure DetailPerforming ClinicianStart: 09-27-2024 EsophagogastroduodenoscopyDO Topher Buck Work Phone: Plan of Treatment DateCare ActivityDetailAuthorStart: 34-37-6800CanbqsqirUniversity Hospitals Ahuja Medical Center Patient EducationHemorrhoids (DC) Hiatal Hernia (DC) Know your [facility] Work Phone: [facility] Payers DatePayer CategoryPayerPolicy [id number] Health [id number] 2...[id number] 2..[id number] 2..[id number] 2..[id number] 2..[id number] Health [id number] Health InsuranceCigna Health [id number] Social History DateTypeDetailFacilityStart: 59-97-9365Ufhcjxo smoking status NHISSmoker (finding)[facility]: 81-97-3226Bjk Assigned At MaleUniversity Hospitals Ahuja Medical Center Goals DatePatient GoalDesired Activity/State Procedure note 09-27-2024 Note Date & [id number] Procedure noteUniversity Hospitals Ahuja Medical Center Evaluation note 09-05-2024 Note Date & DcmnSdikVwlpjhls04-80-3090 Evaluation note* Author Maru Gandhi [facility] Medical CenterAuthoredOctober 2023 2:93vm90-[id number]-npv man referred to the GI clinic for [...] stool infectious workup -Will arrange for colonoscopy [facility] Work Phone: Summary Purpose Family History No Family History Records Found Relationship Condition Age at Onset Recorded Date/T lulu maternal grandmother Malignant neoplasm Unknown paternal grandmotherDiabetes mellitusUnknownpaternal grandfatherHeart disease Unknown Advance Directives No Advanced Directives Records Found Advance Directive Response Recorded Date/ Time Advance Directives No May 18 1:30pm Chief Complaint and Reason for Visit Chief Complaint Refer: Melena, abdom inal pain, diarrhea abd. pain/diarrhea/gerd/melena abd. pain/diarrhea/gerd/melenaReason for VisitAbdominal pain Diarrhea GERD (gastroesophageal reflux disease) Melena Additional Source Comments (unrecognized sect ion and content) No Status Records FoundNo Status Records FoundNo Status Records FoundNo Status Records FoundNo Status Records Found INFORMATION SOURCE (unrecogn ized section and content) DATE CREATED AUTHOR 02/24/2022 [facility] DATE CREATED AUTHOR AUTHOR'S ORGANIZ ATION 03/06/2023 [facility] DATE CREATED AUTHOR AUTHOR'S ORGANIZ ATION 10/11/2024 [facility] DATE CREATED AUTHOR AUTHOR'S ORGANIZ ATION 03/14/2025 [facility] DATE CREATED AUTHOR AUTHOR'S ORGANIZ ATION 09/07/2025 [facility] Care Teams (unrecognized sec tion and content) Team Status: Active Member Role Status Dates Topher Buck DO Primary Care Provider Active Team Status: Inactive Member Role Status Dates NON STAFF Primary Care Provider Active Start: September 05, 2024 End: September 05, 2024Maru Gandhi MDAttromi ProviderActiveStart: September 05, 2024 End: September 05ELIAN Arteagaeferring ProviderActiveStart: September 05, 2024 End: September 05, 2024 Team Status: Inactive Member Role Status Dates Maru Gandhi MD Attending Provider Active Start: September 27, 2024 End: September 27Frances Arteaga Care ProviderActiveStart: September 27, 2024 End: September 27, 2024 Team Status: Active Member Role Status Dates Maru Gandhi MD Attending Provider, Other Provider Active Start: September 27, 2024 Frances Millard ProviderActiveStart: September 27, 2024 FOR RECORDS PERTAINING TO [...] BE BASED ON THE PRIMARY CLINICAL RECORDS. [employer] [facility]. provides no warranty or guarantee of the accuracy or completeness of information in this document.
--- NOTE | 2025-11-05 11:03 | XR_ITS ---
The [address] [address] Patient Name: PERCY ELIZABETH MRN: [id number] date: 1990 Sex: M Assigned Patient Location: ER Current Patient Location: ER Accession/Order Number: [id number] Exam Date: 11/05/2025 11:15 Report Date: 11/05/2025 11:37 At the request of: SIMON TAN MD Procedure: XR elbow LT min 3V LEFT ELBOW - 3 VIEWS CLINICAL HISTORY: Left elbow pain COMPARISON: None AP, lateral and oblique views were obtained. There is no evidence of fracture or dislocation. There are no significant soft tissue abnormalities. There is no elbow effusion. XR/XR elbow LT min 3V IMPRESSION: NO ACUTE BONY FINDINGS. Impression dictated by: Shy Bae M.D. 11/05/2025 11:37 AM Dictation Location: [place] [address] Electronically authenticated by: [id number] Y Date: 11/05/2025 11:37
--- NOTE | 2025-11-05 11:29 | ED_ITS ---
HPI - Extremity Problem General Chief complaint: Extremity Problem, Nontraumatic Stated complaint: L ELBOW PAIN Time Seen by Provider: 11/05/25 10:37 Source: patient Mode of arrival: walk-in Limitations: no limitations History of Present Illness HPI Narrative: The patient 35-year-old male presents to the ER with left elbow pain that has been going on at least for few months, the patient mentioned that it was not associated with any fall or trauma but he feels that the pain started from his elbow going down his hand, and he feels sometimes that he have some weakness in the hand as well, no other history or complaints Patient mentioned that the pain sometimes wake him up from sleep Related Data Home Medications ?Medication ?Instructions ?Recorded ?Confirmed esomeprazole magnesium 40 mg 40 mg PO DAILY 07/30/23 1 01/06/25 capsule,delayed release (Nexium) Previous Rx's ?Medication ?Instructions ?Recorded meloxicam 15 mg tablet 15 mg PO DAILY PRN pain #20 tabs 11/05/25 methylprednisolone 4 mg tablets in 4 mg PO .as directe d #21 ea 11/05/25 a dose pack (Medrol ([place])) Allergies Allergy/AdvReac Type Severity Reaction Status Date / Time No Known Drug Allergies Allergy Verified 11/05/25 10:32 Review of Systems ROS Status of ROS 10 or more systems reviewed and unremark able except as noted in history and below PFSH PFS Social History Smoking status: Current every day smoker Little interest or pleasure in doing things: not at all Feeling down, depressed, or hopeless: not at all Exam Narrative Exam Narrative: Nurses notes and vital signs reviewed and patient is not hypoxic. General: Well-appearing and in no apparent distress. Skin: Warm, dry, no pallor noted. No rash. Left arm examination: The patient have tenderness upon palpation of the elbow mostly posteriorly there is no swelling redness or any effusion there is no signs of trauma Full range of movement preserved Neurological: A&O x4. No cranial nerve dysfunction observed. No truncal ataxia. Moves all extremities. Sensation intact. Psychiatric: Cooperative and interactive. Normal mood and affect. Constitutional Vital Signs, click to edit/add: Last Vital Signs Temp 98.8 F 11/05/25 10:28 Pulse 83 11/05/25 10:28 Resp 14 11/05/25 10:28 BP 151/89 H 11/05/25 10:28 Pulse Ox 99 11/05/25 10:28 Course Vital Signs Vital signs: Vital Signs Temperature 98.8 F 11/05/25 10:28 Pulse Rate 83 11/05/25 10:28 Respiratory Rate 14 11/05/25 10:28 Blood Pressure 151/89 H 11/05/25 10:28 Pulse Oximetry 99 11/05/25 10:28 Temperature 98.8 F 11/05/25 10:28 Pulse Rate 83 11/05/25 10:28 Respiratory Rate 14 11/05/25 10:28 Blood Pressure 151/89 H 11/05/25 10:28 Pulse Oximetry 99 11/05/25 10:28 MDM - Extremity (Nontraumatic) MDM Narrative Medical decision making narrative: The patient x-ray of the elbow obtained because of the history of pain at sleep The patient x-ray showed no acute pathology he was treated in the ER with prednisone discharged home with Medrol Dosepak and referred to orthopedic as outpatient Patient also provided with Mobic for pain control The patient to follow-up with the primary care within 2 to 3 days and to come back to the ER in case of any worsening of the current symptoms or any new symptoms or concerns Discharge Plan Discharge Chief Complaint: Extremity Problem, Nontraumatic Clinical Impression: Elbow pain Patient Disposition: Home, Self-Care Time of Disposition Decision: 11:49 Condition: Good Prescriptions / Home Meds: New methylprednisolone [Medrol ([place])] 4 mg tablets,dose pack 4 mg PO .as directed Qty: 21 0RF Rx Instructions: Please take as per the prescription instruction for the Dosepak meloxicam 15 mg tablet 15 mg PO DAILY PRN (Reason: pain) Qty: 20 0RF No Action esomeprazole magnesium [Nexium] 40 mg capsule,delayed release(DR/EC) 40 mg PO DAILY Print Language: Belarusian Instructions: Arthralgia (ED) Referrals: MACARENA BUCK [Primary Care Provider, Family Practice] - 1 week Chava Dickens DO [Physician, Orthopedics] - 1 week Discharge Date/Time: 11/05/25 12:30
[2025-11-05] MEDS: PREDNISONE 20 MG TABLET 40 MG PO (11:35)
== END 2025-11-05 12:30 | disposition home or self-care (01) ==
PROVIDERS: Emergency Provider Emergency Medicine; PCP Family Medicine
DX: M25.522 Pain in left elbow (principal)
CPT/HCPCS: 73080; 99283; 99284; J7512